=== PATIENT | female | born 1940 | race Hispanic/Latino ===

== ENCOUNTER 2017-06-19 08:22 | Emergency (ER) | payer MEDICARE, MEDICAID ==
[2017-06-19 08:23] VITALS: BMI 37.8
[2017-06-19 09:13] VITALS: BP 164/99; PULSE 67; RESP 16; TEMP 98.1; O2SAT 100
[2017-06-19] MEDS ORDERED: TDAP Vaccine 0.5 mL Syr IM ONE (09:32)
--- NOTE | 2017-06-19 09:35 | ED PDOC ---
Arrival/HPI - General Chief Complaint: Trauma Time Seen by Provider: 06/19/17 09:31 Historian: Patient, Family - History of Present Illness Narrative History of Present Illness (Text): 06/19/17 09:40 Jody Stevens is a 76 year old female, whose past medical history includes afib ( on coumadin) who presents to the emergency department with daughter for concerns s/p mechanical fall since one day ago. Patient reports she was at [employer] when she tripped and landed on her face. Daughter wanted to bring her in for evaluation. Patient currently has no complaints. Time/Duration: 24 hours Symptom Onset: Sudden Symptom Course: Unchanged Context: Tripped Past Medical History - Provider Review Nursing Documentation Reviewed: Yes - Infectious Disease Hx of Infectious Diseases: None - Tetanus Immunization Tetanus Immunization: Unknown - Cardiac Hx Atrial Fibrillation: Yes Hx Hypertension: Yes - Pulmonary Hx Respiratory Disorders: No Hx Asthma: No Hx Bronchitis: No Hx Chronic Obstructive Pulmonary Disease (COPD): No - Neurological Hx Neurological Disorder: No - HEENT Hx Cataracts: Yes (left eye sx) Hx Deafness: Yes ([place]) - Renal Hx Renal Disorder: No - Endocrine/Metabolic Hx Endocrine Disorders: No - Hematological/Oncological Hx Anemia: Yes (blood transfusion 2012 2013) - Integumentary Hx Dermatological Disorder: No - Musculoskeletal/Rheumatological Hx Falls: No - Gastrointestinal Hx Gastrointestinal Disorders: No (gi bleed) - Genitourinary/Gynecological Hx Genitourinary Disorders: No Hx Hematuria: Yes - Psychiatric Hx Depression: No Hx Emotional Abuse: No Hx Physical Abuse: No Hx Substance Use: No - Past Surgical History Past Surgical History: No Previous - Surgical History Other/Comment: drain to buttock - Anesthesia Hx Anesthesia: No - Suicidal Assessment Feels Threatened In Home Enviroment: No Family/Social History - Physician Review Nursing Documentation Reviewed: Yes Family/Social History: Unknown Family HX Smoking Status: Former Smoker Hx Alcohol Use: No Hx Substance Use: No Hx Substance Use Treatment: No Allergies/Home Meds Allergies/Adverse Reactions: Allergies No Known Allergies Allergy (Verified 06/19/17 09:16) Home Medications: Home Meds Medication Instructions Recorded Confirmed Warfarin [Coumadin] 2 mg PO DAILY 10/04/12 06/19/17 Metoprolol Succinate [Toprol XL] 25 mg PO BID 06/19/17 06/19/17 Review of Systems - Review of Systems Constitutional: absent: Fevers Eyes: absent: Vision Changes ENT: absent: Voice Changes, Sore Throat, Rhinorrhea Respiratory: absent: SOB Cardiovascular: absent: Chest Pain Gastrointestinal: absent: Abdominal Pain Musculoskeletal: Other (evaluation after fall ) Skin: Other (bruising). absent: Laceration Neurological: absent: Headache, Dizziness, Focal Weakness Hemo/Lymphatic: absent: Easy Bleeding Physical Exam Vital Signs Reviewed: Yes Vital Signs Temp Pulse Resp BP Pulse Ox 06/19/17 09:10 98.1 F 67 16 164/99 H 100 Temperature: Afebrile Blood Pressure: Hypertensive Pulse: Regular Respiratory Rate: Normal Appearance: Positive for: Well-Appearing, Non-Toxic, Comfortable Pain Distress: None Mental Status: Positive for: Alert and Oriented X 3 - Systems Exam Head: Present: Atraumatic, Normocephalic Pupils: Present: PERRL Extroacular Muscles: Present: EOMI Conjunctiva: Present: Normal, Other (periorbital swelling, swelling to nares) Mouth: Present: Moist Mucous Membranes, Normal Lips, Normal Tounge, Normal Teeth , Other (normal bite) Nose (External): No: Atraumatic Neck: Present: Normal Range of Motion. No: MIDLINE TENDERNESS Respiratory/Chest: Present: Clear to Auscultation, Good Air Exchange. No: Respiratory Distress, Accessory Muscle Use, Wheezes, Rales, Rhonchi Cardiovascular: Present: Regular Rate and Rhythm, Normal S1, S2. No: Murmurs Abdomen: Present: Normal Bowel Sounds. No: Tenderness, Distention, Peritoneal Signs, Rebound, Guarding Upper Extremity: Present: Normal Inspection, Normal ROM, NORMAL PULSES. No: Cyanosis, Edema, Tenderness Lower Extremity: Present: Normal Inspection, Normal ROM. No: Edema, Cyanosis, Tenderness, Swelling Neurological: Present: GCS=15, CN II-XII Intact, Speech Normal, Normal Sensory Function, Gait Normal, Memory Normal Skin: Present: Warm, Dry, Normal Color. No: Rashes Psychiatric: Present: Alert, Oriented x 3, Normal Insight, Normal Concentration Medical Decision Making ED Course and Treatment: 06/19/17 Impression: 76 year old male with periorbital swelling on bilateral eyes s/p mechanical fall yesterday (>12 hours ago). Neurologically intact Plan: -- CT head -- CT maxillofacial -- Labs -- Boostrix vaccine -- Reassess and disposition Progress Notes: 06/19/17 11:27 INR therapeutic at 1.9. CT shows displaced nasal bone fractures. Will give ENT follow-up 06/19/17 11:[address]: Creator : Chun Page MD COMPARISON: 11/09/2015 FINDINGS: HEMORRHAGE: No intracranial hemorrhage. BRAIN: There is a 6 mm calcification in the right occipital lobe. Mild microvascular changes are seen. There is mild atrophy. There are no acute findings VENTRICLES: Unremarkable. No hydrocephalus. CALVARIUM: Displaced nasal bone fractures are seen PARANASAL SINUSES: Unremarkable as visualized. No significant inflammatory changes. MASTOID AIR CELLS: Unremarkable as visualized. No inflammatory changes. OTHER FINDINGS: None. IMPRESSION: No acute intracranial findings. Displaced nasal bone fractures 06/19/17 11:[address]: Creator : Chun Page MD FINDINGS: NASAL BONES: There is a displaced fracture of the nasal bones bilaterally ORBITS: Unremarkable. PARANASAL SINUSES/ MASTOIDS: Clear. MAXILLA: Unremarkable. MANDIBLE/ TEMPOROMANDIBULAR JOINTS: Unremarkable. SKULL BASE: Unremarkable. TEMPORAL BONES: Middle ears and mastoid grossly unremarkable. OTHER FINDINGS: None. IMPRESSION: There is a displaced fracture of the nasal bones bilaterally. No other fractures seen - Lab Interpretations Lab Results: 06/19/17 09:43 Lab Results 06/19/17 09:43: Sodium 140, Potassium 5.0, Chloride 103, Carbon Dioxide 28, Anion Gap 13, BUN 18, Creatinine 1.0, Est GFR ( Amer) > 60, Est GFR (Non- Af Amer) 54, Random Glucose 100, Calcium 9.3, Total Bilirubin 0.9, AST 32, ALT 26, Alkaline Phosphatase 79, Total Protein 8.5 H, Albumin 4.0, Globulin 4.5, Albumin/Globulin Ratio 0.9 L 06/19/17 09:43: PT 21.3 H, INR 1.91 H, APTT 31.1 I have reviewed the lab results: Yes - RAD Interpretation Radiology Orders: 06/19/17 09:31 HEAD W/O CONTRAST [CT] Stat MAXILLOFACIAL W/O CONTRAST [CT] Stat Cash Applications Specialist: Radiologist - Medication Orders Current Medication Orders: Discontinued Medications Tetanus/Reduced Diphtheria/Acell Pertussis (Boostrix Vaccine Inj) 0.5 ml IM .ONCE ONE Stop: 06/19/17 09:33 Last Admin: 06/19/17 09:46 Dose: 0.5 ml Immunization Registry Document 06/19/17 09:46 SE (Rec: 06/19/17 09:46 SE [id number]) Immunization Registry Consent Date 06/19/17 - Scribe Statement The provider has reviewed the documentation as recorded by the Scribe Meme Brewer Provider Scribe Attestation: All medical record entries made by the Scribe were at my direction and personally dictated by me. I have reviewed the chart and agree that the record accurately reflects my personal performance of the history, physical exam, medical decision making, and the department course for this patient. I have also personally directed, reviewed, and agree with the discharge instructions and disposition. Disposition/Present on Arrival - Present on Arrival Any Indicators Present on Arrival: No History of DVT/PE: No History of Uncontrolled Diabetes: No Urinary Catheter: No History of Decub. Ulcer: No History Surgical Site Infection Following: None - Disposition Have Diagnosis and Disposition been Completed?: Yes Diagnosis: Fall, Nasal bone fracture Disposition: HOME/ ROUTINE Disposition Time: 11:28 Patient Plan: Discharge Condition: GOOD Discharge Instructions (ExitCare): Nasal Fracture (ED) Additional Instructions: Follow-up with PMD within 2 days. Return to Emergency department if condition worsens. Follow-up with ENT for nasal bone fractures Referrals: Patricia Verduzco DO [Primary Care Provider] - Follow up with primary Cristopher Mondragon DO [Staff Provider] - Follow up with primary Forms: [employer] ([place]hi)
[2017-06-19 10:01] LABS: ALKALINE PHOSPHATASE 79 U/L (38-126); ALT/SGPT 26 U/L (7-56); AST/SGOT 32 U/L (14-36); BILIRUBIN,TOTAL 0.9 mg/dL (0.2-1.3); BLOOD UREA NITROGEN 18 mg/dL (7-21); CALCIUM 9.3 mg/dL (8.4-10.5); CARBON DIOXIDE 28 mmol/L (21-33); CHLORIDE 103 mmol/L (98-107); GFR AFRICAN-AMERICAN > 60; GLUCOSE,RANDOM 100 mg/dL (70-110); SODIUM 140 mmol/L (132-148); TOTAL PROTEIN 8.5 g/dL (5.8-8.3)
[2017-06-19 10:03] LABS: ALB/GLOB RATIO 0.9 (1.1-1.8)
[2017-06-19 10:04] LABS: INR 1.91 (0.93-1.08); PARTIAL THROMBOPLASTIN TIME 31.1 Seconds (25.1-36.5)
--- NOTE | 2017-06-19 10:46 | CT ---
PROCEDURE: CT HEAD WITHOUT CONTRAST. HISTORY: fall with head trauma COMPARISON: 11/09/2015 TECHNIQUE: Axial computed tomography images were obtained through the head/brain without intravenous contrast. Radiation dose: Total exam DLP = 629 mGy-cm. This CT exam was performed using one or more of the following dose reduction techniques: Automated exposure control, adjustment of the mA and/or kV according to patient size, and/or use of iterative reconstruction technique. FINDINGS: HEMORRHAGE: No intracranial hemorrhage. BRAIN: There is a 6 mm calcification in the right occipital lobe. Mild microvascular changes are seen. There is mild atrophy. There are no acute findings VENTRICLES: Unremarkable. No hydrocephalus. CALVARIUM: Displaced nasal bone fractures are seen PARANASAL SINUSES: Unremarkable as visualized. No significant inflammatory changes. MASTOID AIR CELLS: Unremarkable as visualized. No inflammatory changes. OTHER FINDINGS: None. IMPRESSION: No acute intracranial findings Displaced nasal bone fractures
--- NOTE | 2017-06-19 11:29 | CT ---
PROCEDURE: CT MAXILLOFACIAL BONES WITHOUT CONTRAST HISTORY: fall, head trauma COMPARISON: None TECHNIQUE: Contiguous axial CT images of the maxillofacial bones were obtained. Coronal and sagittal reformats were generated. Radiation dose: Total exam DLP = 754 mGy-cm. This CT exam was performed using one or more of the following dose reduction techniques: Automated exposure control, adjustment of the mA and/or kV according to patient size, and/or use of iterative reconstruction technique. FINDINGS: NASAL BONES: There is a displaced fracture of the nasal bones bilaterally ORBITS: Unremarkable. PARANASAL SINUSES/ MASTOIDS: Clear. MAXILLA: Unremarkable. MANDIBLE/ TEMPOROMANDIBULAR JOINTS: Unremarkable. SKULL BASE: Unremarkable. TEMPORAL BONES: Middle ears and mastoid grossly unremarkable. OTHER FINDINGS: None. IMPRESSION: There is a displaced fracture of the nasal bones bilaterally. No other fractures seen
== END 2017-06-19 11:43 | disposition home or self-care (01) ==
LOC: ED 08:22
DX: S02.2XXA Fracture of nasal bones, initial encounter for closed fracture (principal); W01.0XXA Fall on same level from slipping, tripping and stumbling without subsequent striking against object, initial encounter; Y92.512 Supermarket, store or market as the place of occurrence of the external cause; I10 Essential (primary) hypertension; I48.91 Unspecified atrial fibrillation; Z79.01 Long term (current) use of anticoagulants; Z87.891 Personal history of nicotine dependence; Z23 Encounter for immunization

== ENCOUNTER 2017-10-31 13:43 | Inpatient (IN) | payer MEDICARE, MEDICAID ==
--- NOTE | 2017-10-31 15:07 | ED PDOC ---
Arrival/HPI - General Chief Complaint: Abnormal Labs Time Seen by Provider: 10/31/17 14:55 Historian: Patient - History of Present Illness Narrative History of Present Illness (Text): Jody Stevens is a 76 year old female, whose past medical history includes afib ( on coumadin) who presents to the emergency department with daughter for concerns about high INR; last check was at the PMD office today and was noted to be 8.0. Daughter states that Pt was placed on 5.0 mg of coumadin over 10 days ago when the INR was 1.5. by PMD, Dr. Odonnell, who advised 6 days of a higher dose however, daughter has kept her mother on the higher dose an extra 4 -5 days ; wants to know if Vitamin K is required now. Daughter says Pt reportedly sits alone most of the day watching TV and has a red buttock; denies GIB, fever, dysuria, cp, sob, back pain, nausea, vomiting, diarrhea, or falls or injuries. Time/Duration: < week Symptom Onset: Sudden Symptom Course: Unchanged Quality: Unable to Describe Severity Level: 1 Activities at Onset: Rest Context: Home Past Medical History - Provider Review Nursing Documentation Reviewed: Yes - Travel History Have you recently traveled outside [place] w/in the past 3 mons?: No - Infectious Disease Hx of Infectious Diseases: None - Tetanus Immunization Tetanus Immunization: Unknown - Cardiac Hx Cardiac Disorders: Yes Hx Atrial Fibrillation: Yes Hx Hypertension: Yes - Pulmonary Hx Respiratory Disorders: No Hx Asthma: No Hx Bronchitis: No Hx Chronic Obstructive Pulmonary Disease (COPD): No - Neurological Hx Neurological Disorder: No - HEENT Hx HEENT Disorder: Yes Hx Cataracts: Yes Hx Deafness: Yes ([place]) - Renal Hx Renal Disorder: No - Endocrine/Metabolic Hx Endocrine Disorders: No - Hematological/Oncological Hx Blood Disorders: Yes Hx Anemia: Yes Hx Blood Transfusions: Yes - Integumentary Hx Dermatological Disorder: No - Musculoskeletal/Rheumatological Hx Falls: No - Gastrointestinal Hx Gastrointestinal Disorders: Yes (gi bleed) - Genitourinary/Gynecological Hx Genitourinary Disorders: Yes Hx Hematuria: Yes - Psychiatric Hx Psychophysiologic Disorder: No Hx Substance Use: No - Past Surgical History Past Surgical History: No Previous - Surgical History Other/Comment: drain to buttock - Anesthesia Hx Anesthesia: No - Suicidal Assessment Feels Threatened In Home Enviroment: No Family/Social History - Physician Review Nursing Documentation Reviewed: Yes Family/Social History: Unknown Family HX Smoking Status: Former Smoker Hx Alcohol Use: No Hx Substance Use: No Hx Substance Use Treatment: No Allergies/Home Meds Allergies/Adverse Reactions: Allergies No Known Allergies Allergy (Verified 10/31/17 14:04) Home Medications: Home Meds Medication Instructions Recorded Confirmed Warfarin [Coumadin] 5 mg PO DAILY 10/04/12 10/31/17 Metoprolol Succinate [Toprol XL] 25 mg PO BID 06/19/17 10/31/17 Ergocalciferol [Drisdol 50,000 1.25 mg PO Q7D 10/31/17 10/31/17 Intl Units Cap] Pantoprazole Sodium [Protonix] 40 mg PO DAILY 10/31/17 10/31/17 Rosuvastatin Calcium [Crestor] 10 mg PO DAILY 10/31/17 10/31/17 Review of Systems - Review of Systems Systems not reviewed;Unavailable: Uncooperative Constitutional: Normal Eyes: Normal ENT: Normal Respiratory: Normal Cardiovascular: Normal Gastrointestinal: Normal Genitourinary Female: Normal Musculoskeletal: Normal Skin: Normal, Other (buttock soreness) Neurological: Normal Endocrine: Normal Hemo/Lymphatic: Normal Psychiatric: Normal Physical Exam Vital Signs Reviewed: Yes Vital Signs Temp Pulse Resp BP Pulse Ox 10/31/17 20:06 98.9 F 61 22 160/94 H 100 10/31/17 19:20 63 161/77 H 10/31/17 14:07 99.1 F 83 17 156/82 H 98 Temperature: Afebrile Blood Pressure: Hypertensive Pulse: Regular Respiratory Rate: Normal Appearance: Positive for: Well-Appearing, Non-Toxic, Comfortable Pain Distress: None Mental Status: Positive for: Alert and Oriented X 3 - Systems Exam Head: Present: Atraumatic, Normocephalic Pupils: Present: PERRL Extroacular Muscles: Present: EOMI Conjunctiva: Present: Normal Mouth: Present: Moist Mucous Membranes Neck: Present: Normal Range of Motion Respiratory/Chest: Present: Clear to Auscultation, Good Air Exchange. No: Respiratory Distress, Accessory Muscle Use Cardiovascular: Present: Regular Rate and Rhythm, Normal S1, S2. No: Murmurs Abdomen: No: Tenderness, Distention, Peritoneal Signs Rectal: Present: Other (declined) Back: Present: Normal Inspection Upper Extremity: Present: Normal Inspection. No: Cyanosis, Edema Lower Extremity: Present: Normal Inspection. No: Edema Neurological: Present: GCS=15, CN II-XII Intact, Speech Normal Skin: Present: Warm, Dry, Normal Color, Erythematous (ischial redness bilateral ; no skin breakdown). No: Rashes Psychiatric: Present: Alert, Oriented x 3, Normal Insight, Normal Concentration Medical Decision Making ED Course and Treatment: 10/31/17 15:30 Impression Jody Stevens is a 76 year old female, whose past medical history includes afib ( on coumadin) who presents to the emergency department with daughter for concerns about high INR; last check was at PMD office today and was 8.0. Plan Labs, UA Coags assess and dispo 10/31/17 17:10 Progress Note rectal exam positive for blood EKG: Atrial fibrillation with slow ventricular response, nonspecific ST and T wave abnormality, Rate 57 bpm, Qt/QTc 448/436 ms T&S and FFP x 2 units ordered, Consent obtained Vitamin K 10 mg iv drip contact Yaneth who admits for Dax Discussed case with Dr. Wolfe Pt transferred to floor 11/01/17 01:05 - Lab Interpretations Lab Results: 10/31/17 15:15 10/31/17 15:15 Lab Results 10/31/17 15:15: Sodium 139, Potassium 4.3, Chloride 104, Carbon Dioxide 28, Anion Gap 12, BUN 16, Creatinine 0.9, Est GFR ( Amer) > 60, Est GFR (Non- Af Amer) > 60, Random Glucose 99, Calcium 9.2, Total Bilirubin 0.4, AST 33, ALT 24, Alkaline Phosphatase 81, Total Protein 8.5 H, Albumin 3.7, Globulin 4.8, Albumin/Globulin Ratio 0.8 L 10/31/17 15:15: PT 107.6 H, INR 9.02 H*, APTT 61.7 H 10/31/17 15:15: WBC 12.6 H D, RBC 3.82, Hgb 9.4 L, Hct 30.8 L, MCV 80.6, MCH 24.6 L, MCHC 30.5 L, RDW 19.3 H, Plt Count 354, MPV 10.8, Gran % 69.2 H, Lymph % (Auto) 20.5 L, [place] % (Auto) 8.9 H, Eos % (Auto) 1.0 L, Baso % (Auto) 0.4, Gran # 8.72 H, Lymph # (Auto) 2.6, [place] # (Auto) 1.1 H, Eos # (Auto) 0.1, Baso # (Auto) 0.05 - Medication Orders Current Medication Orders: Metoprolol Succinate (Toprol Xl) 25 mg PO BID ROSARIO Last Admin: 10/31/17 19:20 Dose: 25 mg MAR Pulse and Blood Pressure Document 10/31/17 19:20 LA (Rec: 10/31/17 19:33 LA [id number]) Pulse Pulse Rate (60-90) 63 Blood Pressure Blood Pressure (100/60-150/90) 161/77 Pantoprazole Sodium (Protonix Ec Tab) 40 mg PO DAILY ROSARIO Discontinued Medications Phytonadione 10 mg/ Sodium (Chloride) 51 mls @ 100 mls/hr IV ONCE ONE Stop: 10/31/17 17:39 Last Admin: 10/31/17 18:17 Dose: 100 mls/hr eMAR Start Stop Document 10/31/17 18:17 LA (Rec: 10/31/17 18:18 LA [id number]) Intravenous Solution Start Date 10/31/17 Start Time 18:18 End Date 10/31/17 End time 18:49 Total Infusion Time 31 Disposition/Present on Arrival - Present on Arrival Any Indicators Present on Arrival: Yes History of DVT/PE: No History of Uncontrolled Diabetes: No Urinary Catheter: No History of Decub. Ulcer: No History Surgical Site Infection Following: None - Disposition Have Diagnosis and Disposition been Completed?: Yes Diagnosis: Gastrointestinal bleeding, lower, Warfarin overdosage Disposition: HOSPITALIZED Disposition Time: 19:14 Patient Plan: Admission Patient Problems: Current Active Problems Problem Status Onset Gastrointestinal bleeding, lower Acute Warfarin overdosage Acute Condition: STABLE
[2017-10-31 16:10] LABS: BASO # 0.05 K/mm3 (0.0-2.0); BASO % 0.4 % (0.0-3.0); EOS # 0.1 (0.0-0.7); GRAN # 8.72 (1.4-6.5); GRAN % 69.2 % (50.0-68.0); HEMOGLOBIN 9.4 g/dL (12.0-16.0); LYMPH # 2.6 (1.2-3.4); LYMPH % 20.5 % (22.0-35.0); MEAN CELL VOLUME 80.6 fl (80.0-105.0); MEAN CORPUSCULAR HEMOGLOBIN 24.6 pg (25.0-35.0); MEAN CORPUSCULAR HGB CONC 30.5 g/dl (31.0-37.0); MEAN PLATELET VOLUME 10.8 fl (7.0-11.0); MONO # 1.1 (0.1-0.6); MONO % 8.9 % (1.0-6.0); RBC 3.82 10^6/uL (3.5-6.1); RED CELL DISTRIBUTION WIDTH 19.3 % (11.5-14.5); WHITE BLOOD COUNT 12.6 10^3/ul (4.5-11.0)
[2017-10-31 16:20] LABS: PROTHROMBIN TIME 107.6 SECONDS (9.4-12.5)
[2017-10-31 16:21] LABS: PARTIAL THROMBOPLASTIN TIME 61.7 Seconds (25.1-36.5)
[2017-10-31 16:22] LABS: INR 9.02 (0.93-1.08)
[2017-10-31 16:34] LABS: ALB/GLOB RATIO 0.8 (1.1-1.8); ALBUMIN 3.7 g/dL (3.0-4.8); ALT/SGPT 24 U/L (7-56); AST/SGOT 33 U/L (14-36); BLOOD UREA NITROGEN 16 mg/dL (7-21); CALCIUM 9.2 mg/dL (8.4-10.5); GFR AFRICAN-AMERICAN > 60; GFR NON-AFRICAN AMERICAN > 60
[2017-10-31] MEDS ORDERED: Phytonadione 10 MG in Sodium Chloride 0.9% 50 ML IV ONE (17:09)
[2017-10-31] MEDS: Metoprolol Succinate 25 mg XL Tab PO SCH (19:20)
[2017-10-31 19:38] LABS: PH,URINE 7.5 (4.7-8.0); URINE BILIRUBIN NEGATIVE (NEGATIVE); URINE BLOOD LARGE (NEGATIVE); URINE GLUCOSE (UA) NEGATIVE (NEGATIVE); URINE LEUKOCYTE ESTERASE MODERATE Leu/uL (NEGATIVE); URINE PROTEIN NEGATIVE mg/dL (<30 mg/dL); URINE UROBILINOGEN 0.2 E.U./dL (<1 E.U./dL)
[2017-10-31 19:41] LABS: URINE APPEARANCE SLIGHT-CLOUDY (CLEAR); URINE COLOR YELLOW (YELLOW)
--- NOTE | 2017-10-31 19:45 | HP ---
DATE OF EXAM: HISTORY OF PRESENT ILLNESS: The patient is 77-year-old was brought in because of rectal bleeding. According to family, the patient was seen by Dr. Verduzco. Recently her Coumadin level was found to be low. She was told to take 5 mg Coumadin every day, that she has been taking even beyond 5 days. So, when she went for followup, she was found to have INR of 8 and daughter states that her past medical history is significant for AFib. PAST MEDICAL HISTORY: Significant for atrial fibrillation, hypertension, hyperlipidemia, history of left shoulder surgery. ALLERGIES: SHE IS NOT ALLERGIC TO ANY MEDICATION. SOCIAL HISTORY: She lives with her daughter. Socially drinks. Denies smoking. MEDICATION AT HOME: She is on metoprolol 25 twice a day, Coumadin 5 mg daily, Protonix 40 daily, Crestor 10 mg daily and vitamin D. REVIEW OF SYSTEMS: Significant for just feeling weak and has slight rectal bleeding. PHYSICAL EXAMINATION: GENERAL: She is awake, alert, oriented, communicative. VITAL SIGNS: She has temperature 99.1, pulse 83, respirations 17, blood pressure 156/82. LUNGS: Bilateral good airflow. No rhonchi or crackle. HEART: S1 and S2 audible. ABDOMEN: Soft and nontender. No rebound. No guarding. NEUROLOGICAL: She is awake and alert. Able to communicate. LABORATORY EXAM: WBC is 12.6, hemoglobin 9.4, hematocrit 30.8, platelet of 354. PT 107.6, INR 9.02. Chemistry: Sodium 139, potassium 4.3, chloride 104, CO2 28, BUN 16, creatinine 0.9, blood sugar of 99. ASSESSMENT: 1. Supratherapeutic INR. 2. Chronic atrial fibrillation. 3. Hypertension. 4. Hyperlipidemia. PLAN: The patient is given vitamin K. She is given FFP. We will hold her Coumadin. Start her on Protonix. Resume her metoprolol. Follow up her CBC, CMP in a.m. Cj Wolfe MD
[2017-10-31 19:54] LABS: URINE EPITHELIAL CELLS 0 - 2 /hpf (0-5); URINE WBC 0 - 2 /hpf (0-6)
[2017-11-01 01:40] VITALS: BMI 39.7
[2017-11-01 06:37] VITALS: O2SAT 98
[2017-11-01 08:22] LABS: BASO # 0.05 K/mm3 (0.0-2.0); BASO % 0.6 % (0.0-3.0); EOS # 0.2 (0.0-0.7); EOS % 1.9 % (1.5-5.0); GRAN # 5.46 (1.4-6.5); GRAN % 63.4 % (50.0-68.0); HEMOGLOBIN 9.3 g/dL (12.0-16.0); LYMPH # 2.3 (1.2-3.4); LYMPH % 26.8 % (22.0-35.0); MEAN CELL VOLUME 80.2 fl (80.0-105.0); MEAN CORPUSCULAR HEMOGLOBIN 24.3 pg (25.0-35.0); MEAN CORPUSCULAR HGB CONC 30.3 g/dl (31.0-37.0); MEAN PLATELET VOLUME 10.5 fl (7.0-11.0); MONO # 0.6 (0.1-0.6); MONO % 7.3 % (1.0-6.0); RBC 3.83 10^6/uL (3.5-6.1); WHITE BLOOD COUNT 8.6 10^3/ul (4.5-11.0)
[2017-11-01 08:39] LABS: INR 1.57 (0.93-1.08); PROTHROMBIN TIME 18.2 SECONDS (9.4-12.5)
[2017-11-01 08:41] LABS: ALB/GLOB RATIO 0.8 (1.1-1.8); ALBUMIN 3.9 g/dL (3.0-4.8); ALT/SGPT 19 U/L (7-56); AST/SGOT 43 U/L (14-36); BLOOD UREA NITROGEN 12 mg/dL (7-21); CALCIUM 9.3 mg/dL (8.4-10.5); GFR AFRICAN-AMERICAN > 60; GFR NON-AFRICAN AMERICAN > 60
[2017-11-01] MEDS: Metoprolol Succinate 25 mg XL Tab PO SCH ×2 (09:59→17:31)
[2017-11-01] MEDS ORDERED: Pantoprazole 40 mg EC Tab PO SCH (10:00)
[2017-11-01] MEDS ORDERED: cefTRIAXone 1 gm 1 GM/100 ML BAG IVPB SCH (10:15)
--- NOTE | 2017-11-01 11:22 | CARD ---
APPROVED REPORT EKG Measurement Heart [id number] <Conclusion> Atrial fibrillation with slow ventricular response Nonspecific ST and T wave abnormality Abnormal ECG
[2017-11-01 14:55] VITALS: RESP 20; TEMP 98.3
--- NOTE | 2017-11-01 17:26 | DS ---
HISTORY OF PRESENT ILLNESS: Patient is 77 years old, seen and examined, who was admitted last night because of supratherapeutic Coumadin. Patient was given FFP and dose of vitamin K. She seems to be doing well. On examination today she is awake, alert, oriented, communicative, not in any distress. No active bleeding. No gum bleeding. No hematuria. No rectal bleeding. No hemoptysis. PHYSICAL EXAMINATION: VITAL SIGNS: She is afebrile. Pulse 69, respirations 18, blood pressure 168/84. LUNGS: Bilateral good airflow. No rhonchi or crackle. HEART: S1 and S2 audible. ABDOMEN: Soft, nontender. No rebound. No guarding. NEUROLOGICAL: Patient is awake and alert, able to communicate. LABORATORY DATA: WBC is 8.6, hemoglobin 9.3, hematocrit 30.7, platelets 322. PT 18.2, INR 1.57. Chemistry: Sodium 141, potassium 4, chloride 101, CO2 29, BUN 12, creatinine 0.8, blood sugar of 92. Urine shows moderate leukocyte and large blood. ASSESSMENT: 1. Supratherapeutic Coumadin level. 2. History of atrial fibrillation. 3. Hypertension. 4. Hyperlipidemia. 5. Urinary tract infection or pyuria. PLAN: We will give her Coumadin 5 mg with 2.5 every other day. Continue Protonix. Continue metoprolol. Patient can be discharged. Can resume all the medications as prior to admission. She will follow up Monday for PT/INR with her primary care. Cj Wolfe MD
[2017-11-01 17:34] VITALS: BP 169/87
[2017-11-01 17:39] VITALS: PULSE 69
== END 2017-11-01 19:17 | disposition home or self-care (01) | DRG 918 ==
LOC: ED 13:43 → ERH 17:32 → 3RSO 22:02
PROVIDERS: ADMIT Internal Medicine; ATTEND Internal Medicine
DX: T45.511A Poisoning by anticoagulants, accidental (unintentional), initial encounter (principal); K62.5 Hemorrhage of anus and rectum; N39.0 Urinary tract infection, site not specified; R79.1 Abnormal coagulation profile; I48.2 Chronic atrial fibrillation; I10 Essential (primary) hypertension; E78.5 Hyperlipidemia, unspecified; H91.90 Unspecified hearing loss, unspecified ear; Z79.01 Long term (current) use of anticoagulants

== ENCOUNTER 2018-05-26 16:06 | Emergency (ER) | payer MEDICARE, MEDICAID ==
[2018-05-26 16:07] VITALS: BMI 39.7
[2018-05-26 16:30] VITALS: PULSE 80; RESP 18; O2SAT 99
[2018-05-26 17:53] LABS: BASO # 0.07 K/mm3 (0.0-2.0); BASO % 0.5 % (0.0-3.0); EOS # 0.2 (0.0-0.7); EOS % 1.1 % (1.5-5.0); GRAN # 10.52 (1.4-6.5); GRAN % 71.7 % (50.0-68.0); HEMOGLOBIN 9.9 g/dL (12.0-16.0); LYMPH # 2.9 (1.2-3.4); LYMPH % 19.6 % (22.0-35.0); MEAN CELL VOLUME 76.1 fl (80.0-105.0); MEAN CORPUSCULAR HGB CONC 28.9 g/dl (31.0-37.0); MEAN PLATELET VOLUME 10.4 fl (7.0-11.0); MONO % 7.1 % (1.0-6.0); RBC 4.51 10^6/uL (3.5-6.1); RED CELL DISTRIBUTION WIDTH 19.5 % (11.5-14.5); WHITE BLOOD COUNT 14.7 10^3/uL (4.5-11.0)
[2018-05-26] MEDS ORDERED: TDAP Vaccine 0.5 mL Syr IM ONE (18:20)
--- NOTE | 2018-05-26 18:21 | ED PDOC ---
Arrival/HPI - General Chief Complaint: Trauma Time Seen by Provider: 05/26/18 16:24 Historian: Patient - History of Present Illness Narrative History of Present Illness (Text): 05/26/18 18:17 77-year-old female presents today with fall and skin avulsion to the right upper eyelid. Patient family states that she tripped going up the stairs and fell and hit the front of her head on a planter. No loss of consciousness. Patient denies blurred vision. Patient's family states the incident occurred around noon today and the patient wanted to stay at the green party that she was at. Patient presents now for evaluation. pt also c/o bilateral knee pain. no other complaints. Past Medical History - Infectious Disease Hx of Infectious Diseases: None - Tetanus Immunization Tetanus Immunization: Unknown - Cardiac Hx Cardiac Disorders: Yes Hx Hypertension: Yes - Pulmonary Hx Chronic Obstructive Pulmonary Disease (COPD): No - Neurological Hx Neurological Disorder: No - HEENT Hx HEENT Disorder: Yes Hx Cataracts: Yes Hx Deafness: Yes ([place]) - Renal Hx Renal Disorder: No - Endocrine/Metabolic Hx Endocrine Disorders: No - Hematological/Oncological Hx Blood Disorders: Yes Hx Anemia: Yes Hx Blood Transfusions: Yes - Integumentary Hx Dermatological Disorder: No - Musculoskeletal/Rheumatological Hx Falls: No - Gastrointestinal Hx Gastrointestinal Disorders: Yes (gi bleed) - Genitourinary/Gynecological Hx Genitourinary Disorders: Yes Hx Hematuria: Yes - Psychiatric Hx Psychophysiologic Disorder: No Hx Substance Use: No - Past Surgical History Past Surgical History: No Previous - Surgical History Other/Comment: drain to buttock - Anesthesia Hx Anesthesia: No - Suicidal Assessment Feels Threatened In Home Enviroment: No Family/Social History - Physician Review Nursing Documentation Reviewed: Yes Family/Social History: Unknown Family HX Smoking Status: Former Smoker Hx Alcohol Use: No Hx Substance Use: No Hx Substance Use Treatment: No Allergies/Home Meds Allergies/Adverse Reactions: Allergies No Known Allergies Allergy (Verified 05/26/18 16:30) Home Medications: Home Meds Medication Instructions Recorded Confirmed Metoprolol Succinate XL [Toprol XL] 25 mg PO BID 06/19/17 11/01/17 Ergocalciferol [Drisdol 50,000 1.25 mg PO Q7D 10/31/17 10/31/17 Intl Units Cap] Pantoprazole Sodium [Protonix] 40 mg PO DAILY 10/31/17 11/01/17 Rosuvastatin Calcium [Crestor] 10 mg PO DAILY 10/31/17 10/31/17 Warfarin [Coumadin] 2.5 mg PO SUN 11/01/17 11/01/17 Warfarin [Coumadin] 2.5 mg PO TTS 11/01/17 11/01/17 Warfarin [Coumadin] 5 mg PO MWF 11/01/17 11/01/17 Review of Systems - Review of Systems Constitutional: absent: Fatigue, Fevers Eyes: Eye Pain, Other (eye swelling/ecchymosis). absent: Vision Changes, Photophobia ENT: Sinus Congestion. absent: Sore Throat Respiratory: absent: SOB, Cough Cardiovascular: absent: Chest Pain, Palpitations Gastrointestinal: absent: Abdominal Pain, Constipation, Diarrhea, Nausea, Vomiting Musculoskeletal: Arthralgias (b/l knee pain). absent: Back Pain, Neck Pain Skin: Other (abrasion to right upper eyelid) Neurological: absent: Headache, Dizziness Psychiatric: absent: Anxiety, Depression Physical Exam Vital Signs Reviewed: Yes Vital Signs Temp Pulse Resp BP Pulse Ox 05/26/18 16:28 97.5 F L 80 18 177/80 H 99 Temperature: Afebrile Blood Pressure: Normal Pulse: Regular Respiratory Rate: Normal Appearance: Positive for: Well-Appearing, Non-Toxic, Comfortable Pain Distress: None Mental Status: Positive for: Alert and Oriented X 3 - Systems Exam Head: Present: Tenderness, Contusion, Ecchymosis (+ edema and ecchymosis noted to nasal bridge, forehead, and inferior aspect of right orbit without step offs or crepitus. ), Abrasion (there is a 2cm x1cm superficial skin avulsion noted to the right upper eyelid. no active bleeding. + minimal edema noted to upper eyelid. ). No: Atraumatic Pupils: Present: PERRL Extroacular Muscles: Present: EOMI. No: Entrapment Conjunctiva: Present: Normal, Injected Ears: Present: Normal, NORMAL TM Mouth: Present: Moist Mucous Membranes Pharnyx: Present: Normal Nose (External): Present: Contusion Nose (Internal): Present: Other (+ septal perforation (chronic)). No: Septal Hematoma Neck: Present: Normal Range of Motion. No: MIDLINE TENDERNESS Respiratory/Chest: Present: Clear to Auscultation, Good Air Exchange. No: Res piratory Distress, Accessory Muscle Use Cardiovascular: Present: Regular Rate and Rhythm, Normal S1, S2. No: Murmurs Abdomen: No: Tenderness, Rebound, Guarding Back: Present: Normal Inspection Upper Extremity: Present: Normal Inspection, Normal ROM, NORMAL PULSES, Neurovascularly Intact. No: Tenderness, Swelling, Erythema Lower Extremity: Present: Normal ROM, Tenderness (+ minimal ttp over bilateral knees. + ecchymosis noted anterior aspect of right knee; full rom; normal gait. ) Neurological: Present: GCS=15, Speech Normal, Motor Func Grossly Intact, Normal Sensory Function Skin: Present: Warm, Dry, Normal Color Psychiatric: Present: Alert, Oriented x 3 Medical Decision Making ED Course and Treatment: 05/26/18 18:48 77yr old female with mechanical fall with right eyelid abrasion and head injury at noon today. On coumadin. cbc; wbc:14.7 cmp; wnl INR: 1.90 CT facial bones; FINDINGS: BONES: No acute fracture or aggressive appearing osseous lesion. The mandible is intact. SOFT TISSUES: Perinasal and forehead swelling/hematoma is noted. SINUSES: The sinuses are clear. ORBITS: The orbits are normal. No retrobulbar hematoma or mass. IMPRESSION: Unremarkable maxillofacial CT. Perinasal and forehead swelling/hematoma is noted. 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 VENTRICLES: There is generalized parenchymal atrophy noted as demonstrated by symmetrical dilatation of ventricles and sulci. ORBITS: The orbits are unremarkable. SINUSES AND MASTOIDS: The paranasal sinuses and mastoid air cells are clear. BONES: No fracture. SOFT TISSUES: Unremarkable. MISCELLANEOUS: Perinasal and forehead swelling/hematoma is noted. No acute intracranial pathology. IMPRESSION: 1. There is generalized parenchymal atrophy noted as demonstrated by symmetrical dilatation of ventricles and sulci. 2. Chronic periventricular and subcortical microvascular disease is seen. 3. Perinasal and forehead swelling/hematoma is noted. 4. No acute intracranial pathology. xray of bilateral knees; no fracture, + arthritis pt seen and evaluated by dr. Reynoso; pt with superficial skin avulsion to right eyelid; wound cleaned and irrigated; bacitracin applied; pt reassessment; pt non toxic well appearing; no distress. i discussed all results with patient and family. advised f/u with PMD and eye doctor within the next 2 days. advised immediate return if symptoms worsen, persist or if new symptoms develop. Patient verbalizes understanding of discharge instructions and need for immediate followup. all aspects of this case were discussed the attending of record. impression: fall, head injury, facial contusion, eyelid abrasion keep wound clean and dry. apply bacitracin twice daily follow up with the eye doctor within the next 2 days follow up with the primary care physician within the next 2 days follow up with the orthopedist within the next 2 days return immediately if symptoms worsen,persist or if new symptoms develop. - Lab Interpretations Lab Results: 05/26/18 17:40 Lab Results 05/26/18 17:40: WBC 14.7 H, RBC 4.51, Hgb 9.9 L, Hct 34.3 L, MCV 76.1 L D, MCH 22.0 L, MCHC 28.9 L, RDW 19.5 H, Plt Count 356, MPV 10.4, Gran % 71.7 H, Lymph % (Auto) 19.6 L, Pender % (Auto) 7.1 H, Eos % (Auto) 1.1 L, Baso % (Auto) 0.5, Gran # 10.52 H, Lymph # (Auto) 2.9, Pender # (Auto) 1.0 H, Eos # (Auto) 0.2, Baso # (Auto) 0.07 - RAD Interpretation Radiology Orders: 05/26/18 17:00 HEAD W/O CONTRAST [CT] Stat MAXILLOFACIAL W/O CONTRAST [CT] Stat 05/26/18 18:02 KNEES BILATERAL [RAD] Stat Disposition/Present on Arrival - Present on Arrival Any Indicators Present on Arrival: No History of DVT/PE: No History of Uncontrolled Diabetes: No Urinary Catheter: No History of Decub. Ulcer: No History Surgical Site Infection Following: None - Disposition Have Diagnosis and Disposition been Completed?: Yes Diagnosis: Head injury, Facial contusion, Orbital contusion, Abrasion of eyelid Disposition: HOME/ ROUTINE Disposition Time: 18:55 Patient Plan: Discharge Patient Problems: Current Active Problems Problem Status Onset Abrasion of eyelid Acute Facial contusion Acute Head injury Acute Orbital contusion Acute Condition: GOOD Discharge Instructions (ExitCare): Closed Head Injury (DC), Contusion (DC), Skin Abrasions (DC) Additional Instructions: keep wound clean and dry. apply bacitracin twice daily follow up with the eye doctor within the next 2 days follow up with the primary care physician within the next 2 days follow up with the orthopedist within the next 2 days Follow up with the ENT specialist within the next 2 days. return immediately if symptoms worsen,persist or if new symptoms develop. Referrals: Bobby Weir MD [Staff Provider] - Follow up with primary Patricia Verduzco DO [Primary Care Provider] - Follow up with primary Ronny Simeon DO [Staff Provider] - Follow up with primary Forms: [employer] (Romanian)
[2018-05-26 18:41] LABS: ALB/GLOB RATIO 0.9 (1.1-1.8); ALBUMIN 3.8 g/dL (3.0-4.8); INR 1.9; PROTHROMBIN TIME 21.9 SECONDS (9.4-12.5)
[2018-05-26 19:33] VITALS: BP 165/75; TEMP 97.8
--- NOTE | 2018-05-27 08:40 | CT ---
Date of service: 05/26/2018 PROCEDURE: CT HEAD WITHOUT CONTRAST. HISTORY: fall, head injury COMPARISON: None available. TECHNIQUE: Axial computed tomography images were obtained through the head/brain without intravenous contrast. Radiation dose: Total exam DLP = 967.62 mGy-cm. This CT exam was performed using one or more of the following dose reduction techniques: Automated exposure control, adjustment of the mA and/or kV according to patient size, and/or use of iterative reconstruction technique. FINDINGS: HEMORRHAGE: No intracranial hemorrhage. BRAIN: No mass effect or edema. Chronic microvascular changes are seen. There is mild to moderate atrophy. VENTRICLES: Unremarkable. No hydrocephalus. CALVARIUM: There is a scalp hematoma in the midline frontal region. PARANASAL SINUSES: Unremarkable as visualized. No significant inflammatory changes. MASTOID AIR CELLS: Unremarkable as visualized. No inflammatory changes. OTHER FINDINGS: The report concurs with the preliminary [facility] report IMPRESSION: No acute intracranial findings
--- NOTE | 2018-05-27 08:47 | CT ---
Date of service: 05/26/2018 PROCEDURE: CT MAXILLOFACIAL BONES WITHOUT CONTRAST HISTORY: fall, right eye/facial injury COMPARISON: None available. TECHNIQUE: Contiguous axial CT images of the maxillofacial bones were obtained. Coronal and sagittal reformats were generated. Radiation dose: Total exam DLP = 783.5 mGy-cm. This CT exam was performed using one or more of the following dose reduction techniques: Automated exposure control, adjustment of the mA and/or kV according to patient size, and/or use of iterative reconstruction technique. FINDINGS: NASAL BONES: There a midline frontal scalp hematoma. Minimally displaced nasal bone fractures are seen. These could be chronic. The remaining facial bones are intact ORBITS: Abnormal shape of the globes bilaterally. Dense material within the left eye and a dense band surrounding the globe. PARANASAL SINUSES/ MASTOIDS: Clear. MAXILLA: Unremarkable. MANDIBLE/ TEMPOROMANDIBULAR JOINTS: Unremarkable. SKULL BASE: Unremarkable. TEMPORAL BONES: Middle ears and mastoid grossly unremarkable. OTHER FINDINGS: The report concurs with the preliminary [facility] report IMPRESSION: There a midline frontal scalp hematoma. Minimally displaced nasal bone fractures are seen. These could be chronic. The remaining facial bones are intact
--- NOTE | 2018-05-27 09:24 | RAD ---
Date of service: 05/26/2018 PROCEDURE: Bilateral knees HISTORY: b/l knee pain s/p fall right > left COMPARISON: TECHNIQUE: Two views of each knee FINDINGS: There is mild joint space narrowing in the medial compartment of the left knee. Mild degenerative changes in the patellofemoral joints bilaterally No fracture. No joint effusion. IMPRESSION: No acute findings
== END 2018-05-26 19:36 | disposition home or self-care (01) ==
LOC: ED 16:06
DX: S00.211A Abrasion of right eyelid and periocular area, initial encounter (principal); S05.11XA Contusion of eyeball and orbital tissues, right eye, initial encounter; S09.90XA Unspecified injury of head, initial encounter; W10.9XXA Fall (on) (from) unspecified stairs and steps, initial encounter; I10 Essential (primary) hypertension; Z87.891 Personal history of nicotine dependence; Z23 Encounter for immunization

== ENCOUNTER 2018-06-26 14:18 | Emergency (ER) | payer MEDICARE, MEDICAID ==
[2018-06-26 14:46] VITALS: BMI 36.1
[2018-06-26 16:27] VITALS: RESP 18
--- NOTE | 2018-06-26 16:32 | ED PDOC ---
Arrival/HPI - General Chief Complaint: GI Problem Time Seen by Provider: 06/26/18 15:38 Historian: Patient, Family (2 daughters) - History of Present Illness Narrative History of Present Illness (Text): 06/26/18 16:31 77 y o female with past medical hx of a-fib, HTN, presents to Emergency department brought in by 2 daughters complaining of constipation x several weeks. Pt speaks only Czech, much of history and translation provided by 2 daughters at bedside. States that pt has not had BM in over a week, states pt has Colace at home for prescription but only took medication 1 time last week without relief. Reports tolerating PO diet well, no associated nausea or vomiting. States that patient receives weekly INR checks for hx a-fib and currently on Warfarin therapy. States that last INR was 1.5 on 06/23/18 [place], and was instructed by PMD to take 2 mg Warfarin on Monday and Monday, and 1 mg daily Mon-Mon until the next INR check this week. Pt's daughters also report that pt had witnessed mechanical fall at home on 06/23/18 as well, and sustained bruise to L rib, along with abrasion to R arm which is not currently bleeding. Pt's daughters did not bring pt to Emergency department on that day of the fall because she was not in pain and was acting like herself. Pt's daughter made appt for pt to be seen this coming Monday06/30/18 for check-up and INR level; did not bring pt to see PMD in office sooner. Pt denies headache, dizziness, chest pain, sob, nausea, vomiting, urinary complaints, or other symptoms. Past medical hx: A-fib (on Coumadin), hypertension PSurgHx: shattered L shoulder s/p metal sj placement in upper L arm Allergies: NKDA Meds: Metoprolol, Warfarin, Vit D Fam hx: denies Soc hx: denies smoking, EtOH, or illicit drug use PMD: Dr. eVrduzco Past Medical History - Provider Review Nursing Documentation Reviewed: Yes - Infectious Disease Hx of Infectious Diseases: None - Tetanus Immunization Tetanus Immunization: Unknown - Reproductive Menopause: Yes - Cardiac Hx Cardiac Disorders: Yes Hx Hypertension: Yes - Pulmonary Hx Chronic Obstructive Pulmonary Disease (COPD): No - Neurological Hx Neurological Disorder: No - HEENT Hx HEENT Disorder: Yes Hx Cataracts: Yes Hx Deafness: Yes ([place]) - Renal Hx Renal Disorder: No - Endocrine/Metabolic Hx Endocrine Disorders: No - Hematological/Oncological Hx Blood Disorders: Yes Hx Anemia: Yes Hx Blood Transfusions: Yes - Integumentary Hx Dermatological Disorder: No - Musculoskeletal/Rheumatological Hx Falls: No - Gastrointestinal Hx Gastrointestinal Disorders: Yes (gi bleed) - Genitourinary/Gynecological Hx Genitourinary Disorders: Yes Hx Hematuria: Yes - Psychiatric Hx Psychophysiologic Disorder: No Hx Substance Use: No - Past Surgical History Past Surgical History: No Previous - Surgical History Other/Comment: drain to buttock - Anesthesia Hx Anesthesia: No - Suicidal Assessment Feels Threatened In Home Enviroment: No Family/Social History - Physician Review Nursing Documentation Reviewed: Yes Family/Social History: No Known Family HX Smoking Status: Former Smoker Hx Alcohol Use: No Hx Substance Use: No Hx Substance Use Treatment: No Allergies/Home Meds Allergies/Adverse Reactions: Allergies No Known Allergies Allergy (Verified 05/26/18 16:30) Home Medications: Home Meds Medication Instructions Recorded Confirmed Metoprolol Succinate XL [Toprol XL] 25 mg PO BID 06/19/17 06/26/18 Ergocalciferol [Drisdol 50,000 1.25 mg PO Q7D 10/31/17 06/26/18 Intl Units Cap] Pantoprazole Sodium [Protonix] 40 mg PO DAILY 10/31/17 06/26/18 Rosuvastatin Calcium [Crestor] 10 mg PO DAILY 10/31/17 06/26/18 Warfarin [Coumadin] 2.5 mg PO SUN 11/01/17 06/26/18 Warfarin [Coumadin] 2.5 mg PO TTS 11/01/17 06/26/18 Warfarin [Coumadin] 5 mg PO MWF 11/01/17 06/26/18 Review of Systems - Review of Systems Constitutional: absent: Fatigue, Weight Change, Fevers, Night Sweats Eyes: absent: Vision Changes Respiratory: absent: SOB, Cough, Sputum, Wheezing Cardiovascular: absent: Chest Pain, Palpitations, Edema Gastrointestinal: Constipation. absent: Abdominal Pain, Diarrhea, Nausea, Vomiting, Appetite Changes, Hematochezia, Hematemesis, Anorexia, Food Intolerance Musculoskeletal: absent: Arthralgias, Back Pain, Neck Pain Skin: absent: Rash Neurological: absent: Headache, Dizziness Endocrine: absent: Diaphoresis Physical Exam Vital Signs Temp Pulse Resp BP Pulse Ox 06/26/18 16:25 65 18 153/81 H 98 06/26/18 14:18 98.7 F 77 20 177/75 H 98 Temperature: Afebrile Blood Pressure: Hypertensive Pulse: Regular Respiratory Rate: Normal Appearance: Positive for: Well-Appearing, Non-Toxic, Comfortable Pain Distress: None Mental Status: Positive for: Alert and Oriented X 3 - Systems Exam Head: Present: Atraumatic, Normocephalic Pupils: Present: PERRL Extroacular Muscles: Present: EOMI Conjunctiva: Present: Normal Mouth: Present: Moist Mucous Membranes Neck: Present: Normal Range of Motion. No: Paraspinal Tenderness, JVD, Lymphadenopathy Respiratory/Chest: Present: Clear to Auscultation, Good Air Exchange. No: Respiratory Distress, Accessory Muscle Use, Wheezes, Rales, Rhonchi Cardiovascular: Present: Normal S1, S2, Other (Irregularly irregular rhythm). No: Murmurs, Rub, Gallop Back: Present: Other (Contusion noted in area of L posterior rib at T11-T12, no tenderness to palpation at site). No: Paraspinal Tenderness Upper Extremity: Present: Normal Inspection, Normal ROM, NORMAL PULSES, Neurovascularly Intact, Capillary Refill < 2s. No: Cyanosis, Edema, Temperature Abnormalties Lower Extremity: Present: Normal Inspection, NORMAL PULSES, Normal ROM, Neurovascularly Intact, Capillary Refill < 2 s. No: Edema, CALF TENDERNESS, Cyanosis Neurological: Present: GCS=15, CN II-XII Intact, Speech Normal, Motor Func Grossly Intact, Normal Sensory Function, Norm Deep Tendon Reflexes, Gait Normal Skin: Present: Warm, Dry, Normal Color. No: Rashes Psychiatric: Present: Alert, Oriented x 3, Normal Insight, Normal Concentration Medical Decision Making ED Course and Treatment: 06/26/18 17:07 77 y o female Past medical hx A-fib, hypertension, presents to the Emergency department complaining of constipation x several weeks and also s/p fall 4 days ago. Plan: -Labs -XR Chest, LS spine, AXR -Continue to monitor 06/26/18 18:23 Lab results reviewed with pt and pt's daughters at bedside. INR 2.4. X-rays pending, continue to monitor. 06/26/18 19:49 Discussed results of XRs with patient. XRs not read by radiologist application designer. XRs read with Emergency department attending Dr. Wheat. Comparison to prior Chest X-ray in October 2014 demonstrated no changes from baseline, cardiomegaly. Abd XR demonstrates stool in colon. LS XR shows no acute fractures to account for clinical presentation. Instructed pt's daughters that pt can take Colace bid at home for constipation. Can follow with PMD for further titration of medication for constipation. All questions and concerns addressed and all are agreeable to plan. - RAD Interpretation Radiology Orders: 06/26/18 16:29 CHEST PORTABLE [RAD] Stat ABDOMEN (FLAT PLATE) 1VIEW [RAD] Stat 06/26/18 16:30 RIBS BILATERAL [RAD] Stat - PA / MECHANICAL COMMISSIONING ENGINEER / Resident Statement / has reviewed & agrees with the documentation as recorded. / has examined the patient and agrees with the treatment plan. Disposition/Present on Arrival - Present on Arrival Any Indicators Present on Arrival: No History of DVT/PE: No History of Uncontrolled Diabetes: No Urinary Catheter: No History of Decub. Ulcer: No History Surgical Site Infection Following: None - Disposition Have Diagnosis and Disposition been Completed?: Yes Diagnosis: Constipation, Status post fall Disposition: HOME/ ROUTINE Disposition Time: 19:55 Patient Plan: Discharge Patient Problems: Current Active Problems Problem Status Onset Constipation Acute Status post fall Acute Condition: IMPROVED Discharge Instructions (ExitCare): Preventing Falls in the Older Adult, Constipation, Adult (DC) Print Language: CHADIAN Additional Instructions: Please follow-up with your primary care physician (Dr. Verduzco) within 2-3 days of hospital discharge. Can take Colace twice daily, one in the morning and 1 at night for constipation symptoms. Should your symptoms recur or worsen, please call your primary care physician or report to your nearest emergency department. Referrals: Patricia Verduzco DO [Primary Care Provider] - Follow up with primary Forms: [employer] (Belarusian)
[2018-06-26 16:58] LABS: BASO # 0.05 K/mm3 (0.0-2.0); BASO % 0.6 % (0.0-3.0); EOS # 0.1 (0.0-0.7); EOS % 1.3 % (1.5-5.0); GRAN # 6.27 (1.4-6.5); GRAN % 69.1 % (50.0-68.0); HEMOGLOBIN 8.9 g/dL (12.0-16.0); LYMPH # 1.8 (1.2-3.4); LYMPH % 19.3 % (22.0-35.0); MEAN CORPUSCULAR HEMOGLOBIN 22.3 pg (25.0-35.0); MEAN CORPUSCULAR HGB CONC 28.9 g/dl (31.0-37.0); MEAN PLATELET VOLUME 10.9 fl (7.0-11.0); MONO # 0.9 (0.1-0.6); MONO % 9.7 % (1.0-6.0); RED CELL DISTRIBUTION WIDTH 20.9 % (11.5-14.5); WHITE BLOOD COUNT 9.1 10^3/uL (4.5-11.0)
[2018-06-26 17:06] LABS: INR 2.4; PARTIAL THROMBOPLASTIN TIME 25.5 Seconds (25.1-36.5); PROTHROMBIN TIME 27.8 SECONDS (9.4-12.5)
[2018-06-26 17:07] LABS: ALB/GLOB RATIO 0.8 (1.1-1.8); ALBUMIN 3.7 g/dL (3.0-4.8); CALCIUM 8.8 mg/dL (8.4-10.5)
[2018-06-26 18:30] VITALS: TEMP 98.2
[2018-06-26 20:14] VITALS: BP 135/64; PULSE 65; O2SAT 98
--- NOTE | 2018-06-27 08:56 | RAD ---
Date of service: 06/26/2018 HISTORY: S/p fall COMPARISON: 11/19/2014 FINDINGS: LUNGS: No active pulmonary disease. PLEURA: No significant pleural effusion identified, no pneumothorax apparent. CARDIOVASCULAR: No aortic atherosclerotic calcification present. Moderate cardiomegaly no pulmonary vascular congestion. OSSEOUS STRUCTURES: No significant abnormalities. VISUALIZED UPPER ABDOMEN: Normal. OTHER FINDINGS: None. IMPRESSION: No active disease.
--- NOTE | 2018-06-27 11:13 | RAD ---
Date of service: 06/26/2018 HISTORY: Constipation COMPARISON: None available. FINDINGS: BOWEL: Normal. No obstruction. No free air. BONES: Normal. OTHER FINDINGS: None. IMPRESSION: No active disease.
--- NOTE | 2018-06-27 11:15 | RAD ---
Date of service: 06/26/2018 PROCEDURE: Radiographs of the Lumbar Spine. HISTORY: S/p fall COMPARISON: No prior. FINDINGS: BONES: Normal alignment. No listhesis. No fracture. DISC SPACES: Multilevel disc degeneration with osteophyte formation. Facet arthropathy. OTHER FINDINGS: None. IMPRESSION: No evidence of acute compression fracture
== END 2018-06-26 19:55 | disposition home or self-care (01) ==
LOC: ED 14:18
DX: K59.00 Constipation, unspecified (principal); I10 Essential (primary) hypertension; I48.91 Unspecified atrial fibrillation; Z87.891 Personal history of nicotine dependence; Z79.01 Long term (current) use of anticoagulants

== ENCOUNTER 2018-08-24 09:28 | Inpatient (IN) | payer MEDICARE, MEDICAID ==
--- NOTE | 2018-08-24 09:51 | ED PDOC ---
Arrival/HPI - General Chief Complaint: Altered Mental Status Time Seen by Provider: 08/24/18 09:40 Historian: Patient, Family - History of Present Illness Narrative History of Present Illness (Text): 08/24/18 09:54 A 78 year old female, whose past medical history includes A- Fib (on Coumadin) and hypertension, presents to the emergency department with a complaint of 1 hour onset slurred speech, left sided numbness, and confusion. Upon arrival to the emergency department, symptoms resolved. Patient's family note that the patient was misidentifying significant others. They reports that she woke up at 5 am today and was at her baseline. Patient ambulated into the emergency department. She is in no acute distress. She denies fevers, chills, headache, dizziness, chest pain, shortness of breath, dyspnea on exertion, cough, abdominal pain, nausea, vomiting, diarrhea, back pain, neck pain, urinary/bowel changes, or any other complaint. PMD: Dr. Odonnell Time/Duration: 1 hour Symptom Onset: Sudden Symptom Course: Resolved Activities at Onset: Rest, Light Context: Home Past Medical History - Provider Review Nursing Documentation Reviewed: Yes - Infectious Disease Hx of Infectious Diseases: None - Tetanus Immunization Tetanus Immunization: Unknown - Cardiac Hx Cardiac Disorders: Yes Hx Hypertension: Yes - Pulmonary Hx Chronic Obstructive Pulmonary Disease (COPD): No - Neurological Hx Neurological Disorder: No - HEENT Hx HEENT Disorder: Yes Hx Cataracts: Yes Hx Deafness: Yes ([place]) - Renal Hx Renal Disorder: No - Endocrine/Metabolic Hx Endocrine Disorders: No - Hematological/Oncological Hx Blood Disorders: Yes Hx Anemia: Yes Hx Blood Transfusions: Yes - Integumentary Hx Dermatological Disorder: No - Musculoskeletal/Rheumatological Hx Falls: No - Gastrointestinal Hx Gastrointestinal Disorders: Yes (gi bleed) - Genitourinary/Gynecological Hx Genitourinary Disorders: Yes Hx Hematuria: Yes - Psychiatric Hx Psychophysiologic Disorder: No Hx Substance Use: No - Past Surgical History Past Surgical History: No Previous - Surgical History Other/Comment: drain to buttock - Anesthesia Hx Anesthesia: No - Suicidal Assessment Feels Threatened In Home Enviroment: No Family/Social History - Physician Review Nursing Documentation Reviewed: Yes Family/Social History: No Known Family HX Smoking Status: Former Smoker Hx Alcohol Use: No Hx Substance Use: No Hx Substance Use Treatment: No Allergies/Home Meds Allergies/Adverse Reactions: Allergies No Known Allergies Allergy (Verified 08/24/18 12:05) Home Medications: Home Meds Medication Instructions Recorded Confirmed RX: Metoprolol Succinate XL 25 mg PO BID 06/19/17 08/24/18 [Toprol XL] RX: Ergocalciferol [Drisdol 50,000 1.25 mg PO Q7D 10/31/17 08/24/18 Intl Units Cap] RX: Pantoprazole Sodium [Protonix] 40 mg PO DAILY 10/31/17 08/24/18 RX: Rosuvastatin Calcium [Crestor] 10 mg PO DAILY 10/31/17 08/24/18 Docusate [Colace] 100 mg PO DAILY 08/24/18 08/24/18 Linaclotide [Linzess] 72 mcg PO DAILY 08/24/18 08/24/18 RX: Warfarin [Coumadin] 1 mg PO DAILY 08/24/18 08/24/18 RX: Warfarin [Coumadin] 2 mg PO DAILY 08/24/18 08/24/18 Review of Systems - Physician Review All systems were reviewed & negative as marked: Yes - Review of Systems Constitutional: absent: Fevers Respiratory: absent: SOB, Cough Cardiovascular: absent: Chest Pain, NOVA Gastrointestinal: absent: Abdominal Pain, Stool Changes, Diarrhea, Nausea, Vomiting Genitourinary Female: absent: Urine Output Changes Musculoskeletal: absent: Back Pain, Neck Pain Neurological: Speech Changes (Slurred speech), Other (left sided numbness). absent: Headache, Dizziness Psychiatric: Other (Confused) Physical Exam Vital Signs Reviewed: Yes Vital Signs Temp Pulse Resp BP Pulse Ox 08/24/18 09:29 98.6 F 97 H 18 128/81 98 Temperature: Afebrile Blood Pressure: Normal Pulse: Tachycardic Respiratory Rate: Normal Appearance: Positive for: Well-Appearing, Non-Toxic, Comfortable Pain Distress: None Mental Status: Positive for: Alert and Oriented X 3 Medical Decision Making ED Course and Treatment: Impression: A 78 year old female is brought into the emergency department with family for complaint of sudden onset of confusion, left- sided numbness, and slurred speech. Plan: -- Head CT -- EKG -- Chest X-ray -- Labs -- Urinalysis -- IV Fluids -- Reassess and disposition Prior Visits: Notes and results from previous visits were reviewed. Progress Notes: 08/24/18 09:50: Code stroke called. 08/24/18 10:10: Case discussed with Dr. Bellamy. States that the patient is not a tPA candidate given that symptoms have resolved in the emergency department. 08/24/18 10:26 EKG: Ordered, reviewed, and independently interpreted the EKG. Rate : 81 BPM Rhythm : A- Fib PROCEDURE: CT HEAD WITHOUT CONTRAST. Dictator : Nolan Brooks MD Report Date : 08/24/2018 10:24:15 IMPRESSION: No acute parenchymal, subarachnoid or extra-axial hemorrhage. BRAIN: Moderate to fairly significant diffuse confluent chronic white matter ischemic changes are again seen extending peripherally into the deep and subcortical white matter both cerebral hemispheres.. Additionally, there are scattered more discrete deep and subcortical white matter, basal nuclei and brainstem chronic lacunar type infarcts. There may also be few chronic left cerebellar lacunar type infarcts as well. Note that the possibility of a small hyperacute infarct cannot be excluded. Moderate to significant generalized volume loss Re demonstrated is an apparent buckle procedure of the left lobe with internal hyperdense appearance possibly related chronic hemorrhage, calcification or prosthesis... 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 Maria at approximately 10:18 p.m. with written down and read back verification. Chest X-ray Dictator : Nolan Brooks MD Report Date : 08/24/2018 11:40:34 IMPRESSION: Mild pulmonary venous congestive changes bilateral lower lobe alveolar-type infiltrates and bilateral effusions 08/24/18 11:03: Case discussed with Dr. Wolfe who accepts patient to her service. 08/24/18 21:[address] gan bedside. accepted notified of ct findings ua treated. no cardipulm complaints. - Lab Interpretations I have reviewed the lab results: Yes - EKG Interpretation Interpreted by ED Physician: Yes Type: 12 lead EKG NIHSS Scale ([place]) Time Performed: 09:57 - How Severe is the Stoke Baseline Level of Consciousness: 0=Alert LOC to Questions: 0=Both comments correct LOC to commands: 0=Obeys both correctly Best Gaze: 0=Normal Visual: 0=No visual loss Facial: 0=Normal Motor Arm - Left: 0=No drift Motor Arm - Right: 0=No drift Motor Leg - Left: 0=No drift Motor Leg - Right: 0=No drift Limb Ataxia: 0=Absent Sensory: 0=Normal Best Language: 0=No aphasia Dysarthia: 0=Normal articulation Extinction & Inattention (Neglect): 0=Normal, no object Score: 0 Risk Level: No Stroke Risk rTPA Inclusion/Exclusion - Refusal of Treatment Patient Refused Treatment: No - Inclusion Criteria for Altepase Patient is 18 years or Older: Yes The Clinical Diagnosis of Ischemic Stroke That is Causing a Potentially Disabling Neurological Deficit: No Time of Onset is Well Established to be Less Than 270 Minute Before Treatment Would Begin: Yes Risk/Benefit Discussed With Patient/Family Member Present: No - Scribe Statement The provider has reviewed the documentation as recorded by the Scribe Dari Zapata Provider Scribe Attestation: All medical record entries made by the Scribe were at my direction and personally dictated by me. I have reviewed the chart and agree that the record accurately reflects my personal performance of the history, physical exam, medical decision making, and the department course for this patient. I have also personally directed, reviewed, and agree with the discharge instructions and disposition. Disposition/Present on Arrival - Present on Arrival Any Indicators Present on Arrival: No History of DVT/PE: No History of Uncontrolled Diabetes: No Urinary Catheter: No History of Decub. Ulcer: No History Surgical Site Infection Following: None - Disposition Have Diagnosis and Disposition been Completed?: Yes Diagnosis: TIA (transient ischemic attack), UTI (urinary tract infection) Disposition: HOSPITALIZED Disposition Time: 10:00 Patient Problems: Current Active Problems Problem Status Onset TIA (transient ischemic attack) Acute UTI (urinary tract infection) Acute Condition: FAIR
[2018-08-24] MEDS ORDERED: Sodium Chloride 0.9% 1,000 ML IV SCH (10:00)
[2018-08-24 10:07] LABS: BASO # 0.05 K/mm3 (0.0-2.0); BASO % 0.4 % (0.0-3.0); EOS # 0.3 (0.0-0.7); EOS % 2.3 % (1.5-5.0); HEMOGLOBIN 8.2 g/dL (12.0-16.0); LYMPH # 2.2 (1.2-3.4); MEAN CELL VOLUME 75.9 fl (80.0-105.0); MEAN CORPUSCULAR HEMOGLOBIN 21.8 pg (25.0-35.0); MEAN CORPUSCULAR HGB CONC 28.7 g/dl (31.0-37.0); MEAN PLATELET VOLUME 10.4 fl (7.0-11.0); MONO # 0.8 (0.1-0.6); MONO % 6.1 % (1.0-6.0); RBC 3.77 10^6/uL (3.5-6.1); RED CELL DISTRIBUTION WIDTH 20.4 % (11.5-14.5); WHITE BLOOD COUNT 13.4 10^3/uL (4.5-11.0)
[2018-08-24 10:16] LABS: ALB/GLOB RATIO 0.8 (1.1-1.8); ALBUMIN 3.9 g/dL (3.0-4.8); BLOOD UREA NITROGEN 17 mg/dL (7-21); CALCIUM 8.9 mg/dL (8.4-10.5); GFR NON-AFRICAN AMERICAN 48; HDL CHOLESTEROL 44 mg/dL (29-60)
[2018-08-24 10:17] LABS: ALT/SGPT < 6 U/L (7-56); AST/SGOT 30 U/L (14-36); INR 1.47; PARTIAL THROMBOPLASTIN TIME 30.4 Seconds (26.9-38.3); PROTHROMBIN TIME 16.6 SECONDS (9.4-12.5)
[2018-08-24 10:27] LABS: LDL CHOLESTEROL 49 mg/dL (0-129)
--- NOTE | 2018-08-24 10:27 | CT ---
Date of service: 08/24/2018 PROCEDURE: CT HEAD WITHOUT CONTRAST. HISTORY: Code Stroke COMPARISON: Comparison made with prior CT scan 05/26/2018. TECHNIQUE: Axial computed tomography images were obtained through the head/brain without intravenous contrast. Radiation dose: Total exam DLP = 927.41 mGy-cm. This CT exam was performed using one or more of the following dose reduction techniques: Automated exposure control, adjustment of the mA and/or kV according to patient size, and/or use of iterative reconstruction technique. FINDINGS: HEMORRHAGE: No acute parenchymal, subarachnoid or extra-axial hemorrhage. BRAIN: Moderate to fairly significant diffuse confluent chronic white matter ischemic changes are again seen extending peripherally into the deep and subcortical white matter both cerebral hemispheres.. Additionally, there are scattered more discrete deep and subcortical white matter, basal nuclei and brainstem chronic lacunar type infarcts. There may also be few chronic left cerebellar lacunar type infarcts as well. Note that the possibility of a small hyperacute infarct cannot be excluded. Moderate to significant generalized volume loss. VENTRICLES: No obstructive hydrocephalus. CALVARIUM: No acute calvarial fractures. PARANASAL SINUSES: Unremarkable as visualized. No significant inflammatory changes. MASTOID AIR CELLS: Unremarkable as visualized. No inflammatory changes. OTHER FINDINGS: Re demonstrated is an apparent buckle procedure of the left lobe with internal hyperdense appearance possibly related chronic hemorrhage, calcification or prosthesis. Clinical correlation with ophthalmologic history recommended. 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 Clinical correlation with ophthalmologic history recommended IMPRESSION: No acute parenchymal, subarachnoid or extra-axial hemorrhage. BRAIN: Moderate to fairly significant diffuse confluent chronic white matter ischemic changes are again seen extending peripherally into the deep and subcortical white matter both cerebral hemispheres.. Additionally, there are scattered more discrete deep and subcortical white matter, basal nuclei and brainstem chronic lacunar type infarcts. There may also be few chronic left cerebellar lacunar type infarcts as well. Note that the possibility of a small hyperacute infarct cannot be excluded. Moderate to significant generalized volume loss Re demonstrated is an apparent buckle procedure of the left lobe with internal hyperdense appearance possibly related chronic hemorrhage, calcification or prosthesis... 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 Maria at approximately 10:18 p.m. with written down and read back verification.
[2018-08-24 10:30] LABS: TROPONIN I 0.01 ng/mL
[2018-08-24 10:31] LABS: URINE BILIRUBIN NEGATIVE (NEGATIVE); URINE BLOOD NEGATIVE (NEGATIVE); URINE GLUCOSE (UA) NEGATIVE (NEGATIVE); URINE LEUKOCYTE ESTERASE SMALL Leu/uL (NEGATIVE); URINE PROTEIN 100 mg/dL (<30 mg/dL); URINE UROBILINOGEN 0.2 E.U./dL (<1 E.U./dL)
[2018-08-24 10:45] LABS: URINE APPEARANCE CLEAR (CLEAR); URINE COLOR YELLOW (YELLOW)
[2018-08-24 10:47] LABS: URINE AMORPHOUS SEDIMENT FEW /hpf; URINE BACTERIA MANY /hpf
[2018-08-24] MEDS ORDERED: levoFLOXacin 750 mg in D5W 150 ML BAG IVPB STA (10:49)
--- NOTE | 2018-08-24 11:44 | RAD ---
Date of service: 08/24/2018 HISTORY: Code Stroke COMPARISON: Chest dated 06/26/2018 FINDINGS: LUNGS: Mild pulmonary venous congestive changes bilateral lower lobe alveolar-type infiltrates and bilateral effusions PLEURA: As above. No pneumothorax apparent. CARDIOVASCULAR: Cardiomegaly. Mild calcified atherosclerotic plaque changes seen transverse portion of the abdominal aorta. OSSEOUS STRUCTURES: No significant change.. Re demonstrated is mild dextroscoliosis of likely compensatory for a levoscoliosis of the lumbar spine VISUALIZED UPPER ABDOMEN: Normal. OTHER FINDINGS: None. IMPRESSION: Mild pulmonary venous congestive changes bilateral lower lobe alveolar-type infiltrates and bilateral effusions
--- NOTE | 2018-08-24 14:53 | CP.PCM.CON ---
<Wilbur Nance - Last Filed: 08/24/18 14:50> History of Present Illness - History of Present Illness History of Present Illness: Neurology Consultation (Dr. Bellamy's Service) Consulting Physician: Dr. Maria CC: TIA Symptoms/Code Stroke HPI: Mrs. Stevens is a 78 year old female with a past medical history significant for atrial fibrillation (on Coumadin), HTN, chronic constipation, Vitamin D deficiency and GERD who presents with left sided upper/lower extremity weakness, dysarthria, and inability to correctly identify family member. Patients first language is [place] and patients daughters at bedside for translation. According to patients daughter, she began to notice the patient leaning to her left side with her left knee "buckling" and that she was slurring her speech. Daljit avila became even more concerned when the patient called her by the wrong name, something that patient reportedly has never done before, and decided that the patient needed further evaluation at the [facility] ED. During transportation in the ambulance to the ER, patients symptoms resolved without intervention. Upon arrival to the ED, a code stroke was initiated and, given that her symptoms resolved in route to the ED, was not a candidate for tPa. Patient reports that she recalls becoming weak this morning and having difficulty with the motor function of her mouth when speaking. She denies any visual/auditory aura's, headache, changes in her vision, LOC, seizure activity or loss of bowel/bladder function during this episode. During this assessment, patient also demonstrated correct identification of her loved ones at bedside. Of note, patients family members all noted that patient struggles to maintain her INR in therapeutic range as she is unable to comply with diet restrictions while on Coumadin. She currently denies any symptoms and further 12 point ROS unremarkable. PMH: As stated above PSH: Multiple cataract surgeries bilaterally Family History: Denies Social History: Former light smoker (Quit >15 years ago); Denies any alcohol or illicit drug use Allergies: NKDA Home Medications: As per MAR Review of Systems - Review of Systems Review of Systems: As stated in HPI, otherwise negative Past Patient History - Infectious Disease Hx of Infectious Diseases: None - Tetanus Immunizations Tetanus Immunization: Unknown - Past Medical History & Family History Past Medical History?: Yes - Past Social History Smoking Status: Former Smoker - CARDIAC Hx Cardiac Disorders: Yes Hx Hypertension: Yes - PULMONARY Hx Chronic Obstructive Pulmonary Disease (COPD): No - NEUROLOGICAL Hx Neurological Disorder: No - HEENT Hx HEENT Problems: Yes Hx Cataracts: Yes Hx Deafness: Yes ([place]) - RENAL Hx Chronic Kidney Disease: No - ENDOCRINE/METABOLIC Hx Endocrine Disorders: No - HEMATOLOGICAL/ONCOLOGICAL Hx Blood Disorders: Yes Hx Anemia: Yes Hx Blood Transfusions: Yes - INTEGUMENTARY Hx Dermatological Problems: No - MUSCULOSKELETAL/RHEUMATOLOGICAL Hx Falls: No - GASTROINTESTINAL Hx Gastrointestinal Disorders: Yes (gi bleed) - GENITOURINARY/GYNECOLOGICAL Hx Genitourinary Disorders: Yes Hx Hematuria: Yes - PSYCHIATRIC Hx Psychophysiologic Disorder: No Hx Substance Use: No - SURGICAL HISTORY Other/Comment: drain to buttock - ANESTHESIA Hx Anesthesia: No Meds Allergies/Adverse Reactions: Allergies Allergy/AdvReac Type Severity Reaction Status Date / Time No Known Allergies Allergy Verified 08/24/18 12:05 - Medications Medications: Current Medications Atorvastatin Calcium (Lipitor) 40 mg PO DIN ROSARIO Docusate Sodium (Colace) 100 mg PO DAILY ROSARIO Furosemide (Lasix) 40 mg IVP DAILY [facility], [facility]–1983 Sodium Chloride (Sodium Chloride 0.9%) 1,000 mls @ 100 mls/hr IV .Q10H FOR[facility], [facility] Last Admin: 08/24/18 10:32 Dose: 100 mls/hr Metoprolol Succinate (Toprol Xl) 25 mg PO BID [facility], [facility]1983 Non-Formulary Medication (Rosuvastatin Calcium [Crestor]) 10 mg PO DAILY ROSARIO Pantoprazole Sodium (Protonix Ec Tab) 40 mg PO DAILY ROSARIO Warfarin Sodium (Coumadin) 10 mg PO DAILY@1800 ROSARIO; Protocol Physical Exam - Constitutional Appears: Non-toxic, No Acute Distress - Head Exam Head Exam: ATRAUMATIC, NORMOCEPHALIC - Eye Exam Eye Exam: EOMI, Normal appearance, PERRL. absent: Conjunctival injection, Nystagmus, Periorbital swelling, Periorbital tenderness, Scleral icterus Pupil Exam: NORMAL ACCOMODATION, PERRL. absent: Fixed, Irregular, Miosis, Mydriatic, Unequal - ENT Exam ENT Exam: Mucous Membranes Moist - Neck Exam Neck exam: Positive for: Full Rom - Respiratory Exam Respiratory Exam: Clear to Auscultation Bilateral, NORMAL BREATHING PATTERN - Cardiovascular Exam Cardiovascular Exam: Irregular Rhythm, +S1, +S2. absent: Bradycardia, Tachycardia, JVD - GI/Abdominal Exam GI & Abdominal Exam: Normal Bowel Sounds, Soft. absent: Tenderness - Extremities Exam Extremities exam: Positive for: normal capillary refill, pedal edema (+1 pitting edema extending to mid calves bilaterally), pedal pulses present. Negative for: calf tenderness, joint swelling, tenderness - Neurological Exam Neurological exam: Alert, CN II-XII Intact, Normal Gait, Oriented x3, Reflexes Normal Additional comments: NIHSS Score: 0 - Expanded Neurological Exam Expanded Neurological exam: Inattentive Patient oriented to: person, place, time Cranial nerves: EOM's Intact: Normal, Facial Palsey w/Forehead Movement: Normal, Facial Palsey w/o Forehead Movement: Normal, Facial Sensation: Normal, Nystagm us: Normal, Tongue Deviation: Normal Ataxia: No Cerebellar Function: Finger to Nose: Normal Sensory exam: Lower Extremity Light Touch: Normal, Upper Extremity Light Touch: Normal Neuro motor strength exam: Left Upper Extremity: 4 (Somewhat limited d/t pain), Right Upper Extremity: 5, Left Lower Extremity: 5, Right Lower Extremity: 5 Coma Scale Eye Opening: SPONTANEOUS Coma Scale Motor Response: OBEYS COMMANDS Coma Scale Verbal: Oriented Coma Scale Total: 15 - Psychiatric Exam Psychiatric exam: Normal Affect, Normal Mood - Skin Skin Exam: Dry, Intact, Warm Results - Vital Signs Recent Vital Signs: Last Vital Signs Temp 98.6 F 08/24/18 09:29 Pulse 97 H 08/24/18 09:29 Resp 18 08/24/18 09:29 BP 128/81 08/24/18 09:29 Pulse Ox 98 08/24/18 09:29 - Labs Result Diagrams: 08/24/18 09:58 08/24/18 09:58 Labs: Laboratory Results - last 24 hr 08/24/18 08/24/18 08/24/18 09:58 09:58 09:58 WBC 13.4 H D RBC 3.77 Hgb 8.2 L Hct 28.6 L MCV 75.9 L MCH 21.8 L MCHC 28.7 L RDW 20.4 H Plt Count 376 MPV 10.4 Neut % (Auto) 75.2 H Lymph % (Auto) 16.0 L [place] % (Auto) 6.1 H Eos % (Auto) 2.3 Baso % (Auto) 0.4 Lymph # (Auto) 2.2 [place] # (Auto) 0.8 H Eos # (Auto) 0.3 Baso # (Auto) 0.05 Absolute Neuts (auto) 10.10 H PT 16.6 H INR 1.47 APTT 30.4 Sodium 139 Potassium 4.8 Chloride 107 Carbon Dioxide 26 Anion Gap 11 BUN 17 Creatinine 1.1 Est GFR ( Amer) 58 Est GFR (Non-Af Amer) 48 Random Glucose 114 H Calcium 8.9 Total Bilirubin 0.4 AST 30 ALT < 6 L Alkaline Phosphatase 75 Troponin I 0.01 D NT-Pro-B Natriuret Pep Total Protein 8.5 H Albumin 3.9 Globulin 4.6 Albumin/Globulin Ratio 0.8 L Triglycerides 100 Cholesterol 111 L LDL Cholesterol Direct 49 HDL Cholesterol 44 Urine Color Urine Appearance Urine pH Ur Specific [place] Urine Protein Urine Glucose (UA) Urine Ketones Urine Blood Urine Nitrate Urine Bilirubin Urine Urobilinogen Ur Leukocyte Esterase Urine RBC Urine WBC Ur Epithelial Cells Amorphous Sediment Urine Bacteria Urine Other Blood Type Antibody Screen BBK History Checked 08/24/18 08/24/18 08/24/18 09:58 10:00 10:15 WBC RBC Hgb Hct MCV MCH MCHC RDW Plt Count MPV Neut % (Auto) Lymph % (Auto) [place] % (Auto) Eos % (Auto) Baso % (Auto) Lymph # (Auto) [place] # (Auto) Eos # (Auto) Baso # (Auto) Absolute Neuts (auto) PT INR APTT Sodium Potassium Chloride Carbon Dioxide Anion Gap BUN Creatinine Est GFR ( Amer) Est GFR (Non-Af Amer) Random Glucose Calcium Total Bilirubin AST ALT Alkaline Phosphatase Troponin I NT-Pro-B Natriuret Pep 1280 H Total Protein Albumin Globulin Albumin/Globulin Ratio Triglycerides Cholesterol LDL Cholesterol Direct HDL Cholesterol Urine Color Yellow Urine Appearance Clear Urine pH 7.0 Ur Specific [place] 1.020 Urine Protein 100 H Urine Glucose (UA) Negative Urine Ketones Negative Urine Blood Negative Urine Nitrate Negative Urine Bilirubin Negative Urine Urobilinogen 0.2 Ur Leukocyte Esterase Small H Urine RBC 1 - 3 H Urine WBC 10 - 15 H Ur Epithelial Cells 3 - 4 Amorphous Sediment Few Urine Bacteria Many Urine Other [place] Blood Type A POSITIVE Antibody Screen Negative BBK History Checked Patient has bt Assessment & Plan - Assessment and Plan (Free Text) Assessment: 78 year old female with a past medical history significant for atrial fibrillation (on Coumadin), HTN, chronic constipation, Vitamin D deficiency and GERD who presents with left sided upper/lower extremity weakness, dysarthria, and inability to correctly identify family member. Plan: -CT Head (08/24) showed moderate diffuse confluent chronic white matter ischemic changes in the deep and subcortical white matter of both cerebral hemispheres, scattered deep and subcortical white matter, basal nuclei and brainstem chronic lacunar type infarcts, few chronic left cerebellar lacunar type infarcts, ophthalmologic findings consistent with patients medical history and no definite acute parenchymal, subarachnoid or extra-axial hemorrhage/infarctions appreciated -Carotid/Vertebral US and 2D Echocardiogram with bubble study pending -INR subtherapeutic at 1.47 -Discontinue Coumadin indefinitely -Start Eliquis 5mg PO BID -Continue Statin -Continue Normal Saline at 100mls/hr -PT/OT -Further recommendations as per Dr. Bellamy Patient seen and case discussed with attending, Dr. Bellamy. Wilbur Nance PGY2 - Date & Time Date: 08/24/18 Time: 14:58 <Andrés Bellamy - Last Filed: 08/27/18 01:38> Meds - Medications Medications: Current Medications Atorvastatin Calcium (Lipitor) 40 mg PO DIN [facility] Last Admin: 08/26/18 17:09 Dose: 40 mg Docusate Sodium (Colace) 100 mg PO DAILY [facility] Last Admin: 08/26/18 10:20 Dose: 100 mg Furosemide (Lasix) 40 mg IVP DAILY [facility] Last Admin: 08/26/18 10:21 Dose: 40 mg Ceftriaxone Sodium (Rocephin 1 Gram Ivpb) 1 gm in 100 mls @ 100 mls/hr IVPB DAILY [facility], [facility]; Protocol Last Admin: 08/26/18 10:22 Dose: 100 mls/hr Metoprolol Succinate (Toprol Xl) 25 mg PO BID [facility] Last Admin: 08/26/18 17:17 Dose: Not Given Pantoprazole Sodium (Protonix Ec Tab) 40 mg PO DAILY [facility] Last Admin: 08/26/18 10:20 Dose: 40 mg Results - Vital Signs Recent Vital Signs: Last Vital Signs Temp 97.7 F 08/26/18 23:59 Pulse 58 L 08/26/18 23:59 Resp 18 08/26/18 23:59 BP 131/62 08/26/18 23:59 Pulse Ox 97 08/26/18 23:59 - Labs Result Diagrams: 08/26/18 07:15 08/25/18 06:00 Labs: Laboratory Results - last 24 hr 08/24/18 08/26/18 08/26/18 10:00 07:15 07:22 WBC 11.1 H D RBC 3.65 Hgb 7.7 L Hct 27.5 L MCV 75.3 L MCH 21.1 L MCHC 28.0 L RDW 20.2 H Plt Count 321 MPV 10.3 Neut % (Auto) 69.8 H Lymph % (Auto) 16.4 L [place] % (Auto) 11.4 H Eos % (Auto) 1.9 Baso % (Auto) 0.5 Lymph # (Auto) 1.8 [place] # (Auto) 1.3 H Eos # (Auto) 0.2 Baso # (Auto) 0.05 Absolute Neuts (auto) 7.72 H POC Glucose (mg/dL) 98 Blood Type A POSITIVE Antibody Screen Negative Crossmatch See Detail BBK History Checked Patient has bt 08/26/18 08/26/18 08/26/18 11:57 16:16 21:04 WBC RBC Hgb Hct MCV MCH MCHC RDW Plt Count MPV Neut % (Auto) Lymph % (Auto) [place] % (Auto) Eos % (Auto) Baso % (Auto) Lymph # (Auto) [place] # (Auto) Eos # (Auto) Baso # (Auto) Absolute Neuts (auto) POC Glucose (mg/dL) 187 H 108 128 H Blood Type Antibody Screen Crossmatch BBK History Checked Attending/Attestation - Attestation I have personally seen and examined this patient.: Yes I have fully participated in the care of the patient.: Yes I have reviewed all pertinent clinical information: Yes Notes (Text): I agree with the assessment and plan. Will continue stroke or TIA work-up as above.
[2018-08-24] MEDS: Pantoprazole 40 mg EC Tab PO SCH (15:01)
--- NOTE | 2018-08-24 16:26 | CARD ---
APPROVED REPORT Date of service: 08/24/2018 EKG Measurement Heart [id number] <Conclusion> Undetermined rhythm Otherwise normal ECG
[2018-08-24] MEDS: Metoprolol Succinate 25 mg XL Tab PO SCH (18:20)
--- NOTE | 2018-08-24 18:38 | CON ---
DATE: 08/24/2018 NEUROLOGY CONSULTATION CHIEF COMPLAINT: TIA symptoms. HISTORY OF PRESENT ILLNESS: This is a 78-year-old woman with past medical history of AFib, on Eliquis, hypertension, chronic constipation, vitamin D deficiency, GERD, who presented with left side upper and lower extremity weakness, unable to correctly identify the family member. The patient's first language is Persian. The patient's daughter is at the bedside and was a director of operations. According to the patient's daughter, she towards to the left side, left knee buckle and a slurred speech. Therefore, she came to the hospital for further evaluation. During the patient's ER transport, her symptoms had resolved upon arrival. symptoms resolved in ED. The patient was not a TPA candidate. The patient recalls coming week and is having difficulty had mode of functions speaking. Symptoms change like mostly of TIA. Currently, . PAST MEDICAL HISTORY: As above. FAMILY HISTORY: Noncontributory. SOCIAL HISTORY: Former light smoker, quit 15 years ago. Denies any illicit drug use or alcohol abuse.. MEDICATIONS: Reviewed by nurse's reconciliation sheet. ALLERGIES: NO KNOWN DRUG ALLERGIES. REVIEW OF SYSTEMS: Fourteen-point review of systems is as per HPI. PHYSICAL EXAMINATION: VITAL SIGNS: Temperature 98.6, pulse rate of 64, blood pressure 150/77, respiratory rate of 18, oxygen saturation of 90% on room air. GENERAL: The patient is seen up in bed, in no acute distress. HEENT: Head is atraumatic, normocephalic. PERRLA. Extraocular muscles intact. NECK: Supple. No JVD. No adenopathy noted. LUNGS: Clear to auscultation. No adventitious sounds. HEART: S1 and S2. Normal rate and rhythm. No murmurs, rubs, or gallops. ABDOMEN: Soft, nontender, and nondistended. Bowel sounds present. EXTREMITIES: No clubbing and no cyanosis. Peripheral pulses are 2+ bilaterally. NEUROLOGICAL: The patient is alert and oriented to person, place, month and year. Speech is fluent without any errors. Cranial nerves II through XII are intact. Motor exam; moves all extremities equally. Toes are downgoing bilaterally. Sensory exam; light touch, pinprick, proprioception and vibration are intact. DTRs are 2+ throughout one in both in knees and ankles. Coordination; [id number]-[id number] is intact. No dysmetria noted. Gait is deferred for now. ASSESSMENT AND PLAN: 1. This is a 78-year-old woman with history of atrial fibrillation, on Eliquis, hypertension, chronic constipation, vitamin D deficiency, gastroesophageal reflux disease, who presented with transient left side upper and lower extremity weakness. She is unable to correctly identity the family member. CAT scan of the head show some moderate diffuse chronic white matter ischemic changes in the deep and subcortical white matter of both cerebral hemispheres consistent with chronic lacunar type infarcts and few chronic left cerebral lacunar infarcts. Mostly, findings were consistent with past medical history, no definite acute parenchymal subarachnoid hemorrhage. Currently, she was previously on Coumadin, but at this time her symptoms seems most likely of transient ischemic attack. We recommend her to continue with Eliquis instead of Coumadin 5 mg p.o. b.i.d. 2. Statin and Lipitor 40 mg p.o. daily for dyslipidemia and physical therapy and occupational therapy evaluation. We will get a carotid Doppler once again. She is clinically stable at this standpoint. Thank you for the consult. Rakesh Ledesma MD
[2018-08-24 18:44] VITALS: BMI 37.8
[2018-08-24] MEDS ORDERED: Pneumococcal 23-Valent Vaccine IM ONE (18:44)
[2018-08-24] MEDS ORDERED: Influenza Vaccine 60 mcg/0.5 mL SYR (4YR UP) IM ONE (18:44)
--- NOTE | 2018-08-24 20:59 | US ---
PROCEDURE: Bilateral carotid artery duplex ultrasound HISTORY: Carotid stenosis syncope PHYSICIAN(S): Saud Garcia MD. TECHNIQUE: Duplex sonography and color-flow Doppler were used to evaluate the carotid bifurcations and limited segments of the vertebral arteries bilaterally. FINDINGS: There is mild to moderate smooth heterogeneous plaque noted at the carotid bifurcations bilaterally. The peak systolic velocity in the proximal right internal carotid artery is 66 cm/sec. This corresponds to a 20 to 39% proximal right ICA stenosis. Normal systolic velocities are noted in the proximal right external carotid artery. There is antegrade flow in the right vertebral artery. The peak systolic velocity in the proximal left internal carotid artery is 97 cm/sec. This corresponds to a 20 to 39% proximal left ICA stenosis. Normal systolic velocities are noted in the proximal left external carotid artery. There is antegrade flow in the left vertebral artery. IMPRESSION: 1. Bilateral 20-39% proximal ICA stenoses. 2. Antegrade flow in both vertebral arteries.
--- NOTE | 2018-08-24 23:01 | HP ---
DATE OF EXAM: 08/24/2018 HISTORY OF PRESENT ILLNESS: Patient is 78-year-old brought in by her daughter with whom she lives with. Daughter noted that she had slurred speech. She was having difficulty finding words. By the time she came to the ER, her symptoms resolved. Denies any chest pain. No shortness of breath. No nausea, vomiting. No diarrhea. Patient's family noted that she has been having increasing leg swelling. Patient's daughter who was at the bedside states that she was taken to Dr. was found to be normal. Patient's family also noted that she had some confusion with some left-sided weakness. When I asked her how she is doing, she said she is okay and she . PAST MEDICAL HISTORY: Significant for: 1. Hypertension. 2. Chronic atrial fibrillation. 3. Hyperlipidemia. 4. History of left shoulder surgery in the past. ALLERGIES: SHE IS NOT ALLERGIC TO ANY MEDICATIONS. MEDICATIONS AT HOME: She is on Crestor 10 mg daily, Protonix 40 daily, metoprolol 25 twice a day, , and Coumadin 2 mg daily. SOCIAL HISTORY: She used to be smoker in the remote past. Denies any alcohol use. PHYSICAL EXAMINATION: GENERAL: She is awake, alert, able to communicate, somewhat confused. VITAL SIGNS: She is afebrile. Pulse 97, respirations 18, blood pressure 128/81. LUNGS: Bilateral fair airflow. No rhonchi or crackles. HEART: S1 and S2 audible. ABDOMEN: Soft, obese, nontender. No rebound. No guarding. NEUROLOGIC: Patient is awake and alert, able to communicate. Moves all extremities. LABORATORY DATA: WBC 13.4, hemoglobin 8.2, hematocrit 28.6, and platelets 376. PT 16.6. INR 1.46. Sodium 139, potassium 4.8, chloride 107, CO2 of 26, BUN 17, creatinine 1.1. Blood sugar 114. BNP 1280. Urine shows 10 to 15 wbc's. DIAGNOSTIC DATA: CT scan of the head shows moderate to fairly significant diffuse and confluent chronic white matter ischemic changes. Chronic lacunar infarct. Cerebellar lacunar infarct. Questionable small hyperacute infarct cannot be excluded. Moderate to significant generalized volume loss. ASSESSMENT: 1. Altered mental status, possible transient ischemic attack. CT scan is not very much diagnostic. 2. Hypertension. 3. Chronic atrial fibrillation. PLAN: We will give her 4 mg of Coumadin today. Order for carotid Doppler. Neurology evaluation has been requested. Request physical therapy. We will follow up with the patient in the a.m. Cj Wolfe MD
[2018-08-25 07:11] LABS: INR 2.08; PROTHROMBIN TIME 23.5 SECONDS (9.4-12.5)
[2018-08-25 07:25] LABS: HEMOGLOBIN 7.7 g/dL (12.0-16.0); MEAN CELL VOLUME 75.3 fl (80.0-105.0); MEAN CORPUSCULAR HEMOGLOBIN 20.9 pg (25.0-35.0); MEAN CORPUSCULAR HGB CONC 27.8 g/dl (31.0-37.0); MEAN PLATELET VOLUME 10.5 fl (7.0-11.0); RBC 3.68 10^6/uL (3.5-6.1); RED CELL DISTRIBUTION WIDTH 20.1 % (11.5-14.5); WHITE BLOOD COUNT 7.3 10^3/uL (4.5-11.0)
[2018-08-25 07:42] LABS: FREE T4 1.33 ng/dL (0.78-2.19)
[2018-08-25 07:45] LABS: ALB/GLOB RATIO 0.8 (1.1-1.8); ALBUMIN 3.6 g/dL (3.0-4.8); CALCIUM 8.6 mg/dL (8.4-10.5)
[2018-08-25] MEDS: Metoprolol Succinate 25 mg XL Tab PO SCH ×2 (09:34→17:23)
[2018-08-25] MEDS: Pantoprazole 40 mg EC Tab PO SCH (09:34)
[2018-08-25] MEDS ORDERED: Non Formulary Medication (Rosuvastatin Calcium [Crestor] 10 MG) PO SCH (10:00)
[2018-08-25 10:24] LABS: HEMOGLOBIN 8.8 g/dL (12.0-16.0); MEAN CELL VOLUME 75.7 fl (80.0-105.0); MEAN CORPUSCULAR HEMOGLOBIN 21.6 pg (25.0-35.0); MEAN CORPUSCULAR HGB CONC 28.5 g/dl (31.0-37.0); MEAN PLATELET VOLUME 10.2 fl (7.0-11.0); RBC 4.08 10^6/uL (3.5-6.1); RED CELL DISTRIBUTION WIDTH 20.3 % (11.5-14.5); WHITE BLOOD COUNT 8.4 10^3/uL (4.5-11.0)
--- NOTE | 2018-08-25 11:52 | PN ---
DATE: 08/25/2018 SUBJECTIVE: The patient is a 78-year-old who was admitted because of expressive dysphasia. It is all by the time she came to ER. The patient was admitted for close observation. She was found to be anemic this morning. Upon enquiring from family, she did not have colonoscopy for very long time. I did not notice any black stools. No history of peptic ulcer disease. She does have history of AFib, and she has been on anticoagulant . PHYSICAL EXAMINATION: GENERAL: She is awake and alert, able to communicate, hard of hearing. VITAL SIGNS: She is afebrile, pulse 73, respirations 19, blood pressure 158/72. LUNGS: Bilateral fair airflow. No rhonchi or crackle. HEART: S1, S2 audible. ABDOMEN: Soft, obese, nontender. No rebound. No guarding. NEUROLOGIC: The patient is awake, alert, oriented, able to communicate, able to get out of bed with assistance. EXTREMITIES: Bilateral legs, +1 edema. LABORATORY EXAMINATION: WBC is 7.3, hemoglobin 7.7, hematocrit 27, platelet of 347. PT is 23.5, INR 2.08. Chemistry: Sodium 138, potassium 3.8, chloride 100, CO2 of 31, BUN 15, creatinine 1.1, blood sugar of 85. Thyroid profile is within normal limits. Urine cultures are pending. ASSESSMENT: 1. Transient ischemic attack. 2. Anemia. 3. History of hypertension. 4. Hypothyroidism. 5. Chronic atrial fibrillation. 6. Hyperlipidemia. PLAN: We will order stool for Hemoccult. We will order for CBC, CMP in a.m., and GI evaluation has been requested. Stool for Hemoccult is requested. Carotid Doppler is unremarkable. We will discuss with the GI team if her hemoglobin remains stable, we might be able to send her home and she can have colonoscopy as outpatient. Cj Wolfe MD
--- NOTE | 2018-08-25 11:55 | CP.PCM.CON ---
<Pee Parker - Last Filed: 08/25/18 15:17> History of Present Illness - History of Present Illness History of Present Illness: PGY4 GI fellow consult note The following obtained from chart review, hospital staff, and the daughter interpreting due to Frisian language being the patient's primary language. Patient is a 78-year-old Frisian female with history of atrial fibrillation (on warfarin), hypertension, chronic constipation (on linaclotide), history of perirectal abscess status post surgical drainage in 2014, GERD, vitamin D deficiency presenting with dysarthria and motor deficits concerning for stroke. While en route to the hospital via ambulance symptoms spontaneously resolved in the ambulance more suggestive of TIA. However, she was found to be anemic with a hemoglobin down to 7.7 from a baseline of about 9. Therefore, GI was consulted for further evaluation. As far as bowel movements, patient typically moves her bowels every day with f ormed brown stool. However, one daughter notices intermittent bright red blood per rectum that she attributes to known hemorrhoids. Denied any dysphasia, weight loss, melena, abdominal pain, nor family history of colorectal cancer or GI problems. Around the time of her perirectal abscess in 2014, she was instructed to follow-up with outpatient endoscopy but it seems like she did not based upon chart review. Family at bedside does not believe she had any prior EGD nor CSPY. 12 point ROS negative other than stated above MHx: See above Surgical history: Cataracts and perirectal abscess drainage Medications: Reviewed in chart family history: Denied GI problems or colorectal cancer Social history: Former light tobacco user (quit 15 years ago), denied 2 Allergies: No known drug allergies Past Patient History - Infectious Disease Hx of Infectious Diseases: None - Tetanus Immunizations Tetanus Immunization: Unknown - Past Medical History & Family History Past Medical History?: Yes - Past Social History Smoking Status: Former Smoker - CARDIAC Hx Cardiac Disorders: Yes (AFIB, HLD) Hx Hypertension: Yes - PULMONARY Hx Chronic Obstructive Pulmonary Disease (COPD): No - NEUROLOGICAL Hx Neurological Disorder: No - HEENT Hx HEENT Problems: Yes Hx Cataracts: Yes Hx Deafness: Yes ([place]) - RENAL Hx Chronic Kidney Disease: No - ENDOCRINE/METABOLIC Hx Endocrine Disorders: No - HEMATOLOGICAL/ONCOLOGICAL Hx Blood Disorders: Yes Hx Anemia: Yes Hx Blood Transfusions: Yes - INTEGUMENTARY Hx Dermatological Problems: No - MUSCULOSKELETAL/RHEUMATOLOGICAL Hx Falls: No - GASTROINTESTINAL Hx Gastrointestinal Disorders: Yes (gi bleed) - GENITOURINARY/GYNECOLOGICAL Hx Genitourinary Disorders: Yes Hx Hematuria: Yes - PSYCHIATRIC Hx Psychophysiologic Disorder: No Hx Substance Use: No - SURGICAL HISTORY Other/Comment: drain to buttock - ANESTHESIA Hx Anesthesia: No Meds Allergies/Adverse Reactions: Allergies Allergy/AdvReac Type Severity Reaction Status Date / Time No Known Allergies Allergy Verified 08/24/18 12:05 - Medications Medications: Current Medications Apixaban (Eliquis) 5 mg PO BID [facility]; Protocol Last Admin: 08/25/18 09:34 Dose: 5 mg Atorvastatin Calcium (Lipitor) 40 mg PO DIN [facility] Last Admin: 08/24/18 18:20 Dose: 40 mg Docusate Sodium (Colace) 100 mg PO DAILY [facility] Last Admin: 08/25/18 09:33 Dose: 100 mg Furosemide (Lasix) 40 mg IVP DAILY [facility] Last Admin: 08/25/18 09:35 Dose: 40 mg Ceftriaxone Sodium (Rocephin 1 Gram Ivpb) 1 gm in 100 mls @ 100 mls/hr IVPB DAILY [facility]; Protocol Metoprolol Succinate (Toprol Xl) 25 mg PO BID [facility] Last Admin: 08/25/18 09:34 Dose: 25 mg Pantoprazole Sodium (Protonix Ec Tab) 40 mg PO DAILY [facility] Last Admin: 08/25/18 09:34 Dose: 40 mg Physical Exam - Constitutional Appears: Well, No Acute Distress, Chronically Ill - Head Exam Head Exam: ATRAUMATIC, NORMAL INSPECTION - Eye Exam Eye Exam: Normal appearance. absent: Scleral icterus - ENT Exam ENT Exam: Mucous Membranes Moist. absent: Mucous Membranes Dry - Respiratory Exam Respiratory Exam: Clear to Auscultation Bilateral, NORMAL BREATHING PATTERN. absent: Accessory Muscle Use - Cardiovascular Exam Cardiovascular Exam: REGULAR RHYTHM, RRR - GI/Abdominal Exam GI & Abdominal Exam: Normal Bowel Sounds, Soft. absent: Bruit, Diminished Bowel Sounds, Distended, Firm, Guarding, Hernia, Mass, Organomegaly, Pulsatile Mass, Rebound, Rigid, Tenderness - Rectal Exam Additional comments: perirectal area with firm induration darker color not tender to palpation with possible sinus tract/fistula, multiple external hemorrhoid/skin tags (nonth rombosed hemorrhoids), brown stool visualized on JIMMY. - Neurological Exam Neurological exam: Alert, CN II-XII Intact - Psychiatric Exam Psychiatric exam: Normal Affect, Normal Mood - Skin Skin Exam: Dry, Warm Results - Vital Signs Recent Vital Signs: Last Vital Signs Temp 97 F L 08/25/18 06:00 Pulse 73 08/25/18 09:34 Resp 19 08/25/18 06:00 BP 158/72 H 08/25/18 09:35 Pulse Ox 99 08/25/18 06:00 - Labs Result Diagrams: 08/25/18 10:15 08/25/18 06:00 Labs: Laboratory Results - last 24 hr 08/24/18 08/24/18 08/24/18 09:58 10:00 23:21 WBC RBC Hgb Hct MCV MCH MCHC RDW Plt Count MPV PT INR Sodium Potassium Chloride Carbon Dioxide Anion Gap BUN Creatinine Est GFR ( Amer) Est GFR (Non-Af Amer) POC Glucose (mg/dL) 82 Random Glucose Hemoglobin A1c 5.9 Calcium Total Bilirubin AST ALT Alkaline Phosphatase Total Protein Albumin Globulin Albumin/Globulin Ratio Free T4 TSH 3rd Generation Blood Type A POSITIVE Antibody Screen Negative 08/25/18 08/25/18 08/25/18 06:00 06:00 06:00 WBC RBC Hgb Hct MCV MCH MCHC RDW Plt Count MPV PT 23.5 H INR 2.08 Sodium 139 Potassium 3.8 Chloride 100 Carbon Dioxide 31 Anion Gap 12 BUN 15 Creatinine 1.1 Est GFR ( Amer) 58 Est GFR (Non-Af Amer) 48 POC Glucose (mg/dL) Random Glucose 85 Hemoglobin A1c Calcium 8.6 Total Bilirubin 0.7 AST 24 ALT 13 Alkaline Phosphatase 74 Total Protein 7.8 Albumin 3.6 Globulin 4.3 Albumin/Globulin Ratio 0.8 L Free T4 1.33 TSH 3rd Generation 2.14 Blood Type Antibody Screen 08/25/18 08/25/18 08/25/18 06:00 07:32 10:15 WBC 7.3 D 8.4 RBC 3.68 4.08 Hgb 7.7 L 8.8 L Hct 27.7 L 30.9 L MCV 75.3 L 75.7 L MCH 20.9 L 21.6 L MCHC 27.8 L 28.5 L RDW 20.1 H 20.3 H Plt Count 347 342 MPV 10.5 10.2 PT INR Sodium Potassium Chloride Carbon Dioxide Anion Gap BUN Creatinine Est GFR ( Amer) Est GFR (Non-Af Amer) POC Glucose (mg/dL) 77 Random Glucose Hemoglobin A1c Calcium Total Bilirubin AST ALT Alkaline Phosphatase Total Protein Albumin Globulin Albumin/Globulin Ratio Free T4 TSH 3rd Generation Blood Type Antibody Screen Assessment & Plan - Assessment and Plan (Free Text) Assessment: 78-year-old Frisian female with A. fib (on warfarin), chronic constipation, history of perirectal abscess in 2015, GERD presenting with TIA found to have low hemoglobin. # Acute on chronic microcytic anemia: Hemoglobin down to 7.7 from a baseline of about 9. Repeat hemoglobin 8.8 without transfusion. Vital signs stable and rectal exam with brown stool. #History of perirectal abscess: Multiple areas of induration and possible fistula on rectal exam. However no significant erythema nor tenderness to bright ggest acute infection. However etiology raises the concern of underlying IBD #Endoscopy history: No previous endoscopies on file. And family is not sure that patient had any prior endoscopies Plan: - No signs of active GI bleeding at this time - Would benefit from EGD+CSPY, but would need bridging therapy given CHADSVASC at least 6 - Plan to discuss timing of procedures with primary physician - Cont PPI Patient discussed with Dr. Mayorga. Please see attestation for further recommendations/changes <Madeleine Mayorga V - Last Filed: 08/25/18 23:46> Meds - Medications Medications: Current Medications Apixaban (Eliquis) 5 mg PO BID [facility]; Protocol Last Admin: 08/25/18 17:23 Dose: 5 mg Atorvastatin Calcium (Lipitor) 40 mg PO DIN [facility] Last Admin: 08/25/18 17:23 Dose: 40 mg Docusate Sodium (Colace) 100 mg PO DAILY [facility] Last Admin: 08/25/18 09:33 Dose: 100 mg Furosemide (Lasix) 40 mg IVP DAILY [facility] Last Admin: 08/25/18 09:35 Dose: 40 mg Ceftriaxone Sodium (Rocephin 1 Gram Ivpb) 1 gm in 100 mls @ 100 mls/hr IVPB DAILY [facility]; Protocol Last Admin: 08/25/18 12:47 Dose: 100 mls/hr Metoprolol Succinate (Toprol Xl) 25 mg PO BID [facility] Last Admin: 08/25/18 17:23 Dose: 25 mg Pantoprazole Sodium (Protonix Ec Tab) 40 mg PO DAILY [facility] Last Admin: 08/25/18 09:34 Dose: 40 mg Results - Vital Signs Recent Vital Signs: Last Vital Signs Temp 98.3 F 08/25/18 18:00 Pulse 75 08/25/18 22:00 Resp 20 08/25/18 18:00 BP 141/80 08/25/18 18:00 Pulse Ox 99 08/25/18 06:00 - Labs Result Diagrams: 08/25/18 10:15 08/25/18 06:00 Labs: Laboratory Results - last 24 hr 08/25/18 08/25/18 08/25/18 06:00 06:00 06:00 WBC RBC Hgb Hct MCV MCH MCHC RDW Plt Count MPV PT 23.5 H INR 2.08 Sodium 139 Potassium 3.8 Chloride 100 Carbon Dioxide 31 Anion Gap 12 BUN 15 Creatinine 1.1 Est GFR ( Amer) 58 Est GFR (Non-Af Amer) 48 POC Glucose (mg/dL) Random Glucose 85 Calcium 8.6 Total Bilirubin 0.7 AST 24 ALT 13 Alkaline Phosphatase 74 Total Protein 7.8 Albumin 3.6 Globulin 4.3 Albumin/Globulin Ratio 0.8 L Free T4 1.33 TSH 3rd Generation 2.14 Stool Occult Blood 08/25/18 08/25/18 08/25/18 06:00 07:32 10:15 WBC 7.3 D 8.4 RBC 3.68 4.08 Hgb 7.7 L 8.8 L Hct 27.7 L 30.9 L MCV 75.3 L 75.7 L MCH 20.9 L 21.6 L MCHC 27.8 L 28.5 L RDW 20.1 H 20.3 H Plt Count 347 342 MPV 10.5 10.2 PT INR Sodium Potassium Chloride Carbon Dioxide Anion Gap BUN Creatinine Est GFR ( Amer) Est GFR (Non-Af Amer) POC Glucose (mg/dL) 77 Random Glucose Calcium Total Bilirubin AST ALT Alkaline Phosphatase Total Protein Albumin Globulin Albumin/Globulin Ratio Free T4 TSH 3rd Generation Stool Occult Blood 08/25/18 08/25/18 08/25/18 11:54 16:52 19:35 WBC RBC Hgb Hct MCV MCH MCHC RDW Plt Count MPV PT INR Sodium Potassium Chloride Carbon Dioxide Anion Gap BUN Creatinine Est GFR ( Amer) Est GFR (Non-Af Amer) POC Glucose (mg/dL) 115 H 96 Random Glucose Calcium Total Bilirubin AST ALT Alkaline Phosphatase Total Protein Albumin Globulin Albumin/Globulin Ratio Free T4 TSH 3rd Generation Stool Occult Blood Negative 08/25/18 21:12 WBC RBC Hgb Hct MCV MCH MCHC RDW Plt Count MPV PT INR Sodium Potassium Chloride Carbon Dioxide Anion Gap BUN Creatinine Est GFR ( Amer) Est GFR (Non-Af Amer) POC Glucose (mg/dL) 118 H Random Glucose Calcium Total Bilirubin AST ALT Alkaline Phosphatase Total Protein Albumin Globulin Albumin/Globulin Ratio Free T4 TSH 3rd Generation Stool Occult Blood Attending/Attestation - Attestation I have personally seen and examined this patient.: Yes I have fully participated in the care of the patient.: Yes I have reviewed all pertinent clinical information: Yes Notes (Text): This is an addendum to GI consult report dictated by the GI Fellow.The patient was seen and examined earlier. Medical records, lab studies, imagings were reviewed. Last 24 hours events reviewed. Agreed with the above treatment plan as outlined in GI Fellow 's notes with the addition of the following 08/25/18 23:43
[2018-08-25] MEDS: cefTRIAXone 1 gm 1 GM/100 ML BAG IVPB SCH (12:47)
[2018-08-26 07:49] LABS: BASO # 0.05 K/mm3 (0.0-2.0); BASO % 0.5 % (0.0-3.0); EOS # 0.2 (0.0-0.7); EOS % 1.9 % (1.5-5.0); HEMOGLOBIN 7.7 g/dL (12.0-16.0); LYMPH # 1.8 (1.2-3.4); LYMPH % 16.4 % (22.0-35.0); MEAN CELL VOLUME 75.3 fl (80.0-105.0); MEAN CORPUSCULAR HEMOGLOBIN 21.1 pg (25.0-35.0); MEAN PLATELET VOLUME 10.3 fl (7.0-11.0); MONO # 1.3 (0.1-0.6); MONO % 11.4 % (1.0-6.0); RBC 3.65 10^6/uL (3.5-6.1); RED CELL DISTRIBUTION WIDTH 20.2 % (11.5-14.5); WHITE BLOOD COUNT 11.1 10^3/uL (4.5-11.0)
[2018-08-26] MEDS: Pantoprazole 40 mg EC Tab PO SCH (10:20)
[2018-08-26] MEDS: cefTRIAXone 1 gm 1 GM/100 ML BAG IVPB SCH (10:22)
[2018-08-26] MEDS: Metoprolol Succinate 25 mg XL Tab PO SCH ×2 (10:22→17:17)
--- NOTE | 2018-08-26 18:18 | CP.PCM.PN ---
<Pee Parker - Last Filed: 08/26/18 18:13> Subjective - Date & Time of Evaluation Date of Evaluation: 08/26/18 Time of Evaluation: 11:50 - Subjective Subjective: PGY-4 GI Fellow Prog Note Pt lying in bed when seen this AM. Daughter interprets that pt is doing OK, tolerating diet. Denied signs of bleeding. 5 point ROS negative other than stated above Objective - Vital Signs/Intake and Output Vital Signs (last 24 hours): Temp Pulse Resp BP Pulse Ox 97.6 F 61 18 119/53 L 96 08/26/18 18:00 08/26/18 18:00 08/26/18 18:00 08/26/18 18:00 08/26/18 17:50 Intake and Output: 08/26/18 08/26/18 06:59 18:59 Intake Total 0 305 Output Total 600 Balance -600 305 - Medications Medications: Current Medications Atorvastatin Calcium (Lipitor) 40 mg PO DIN [facility] Last Admin: 08/26/18 17:09 Dose: 40 mg Docusate Sodium (Colace) 100 mg PO DAILY [facility] Last Admin: 08/26/18 10:20 Dose: 100 mg Furosemide (Lasix) 40 mg IVP DAILY [facility] Last Admin: 08/26/18 10:21 Dose: 40 mg Ceftriaxone Sodium (Rocephin 1 Gram Ivpb) 1 gm in 100 mls @ 100 mls/hr IVPB DAILY [facility]; Protocol Last Admin: 08/26/18 10:22 Dose: 100 mls/hr Metoprolol Succinate (Toprol Xl) 25 mg PO BID [facility] Last Admin: 08/26/18 17:17 Dose: Not Given Pantoprazole Sodium (Protonix Ec Tab) 40 mg PO DAILY [facility] Last Admin: 08/26/18 10:20 Dose: 40 mg - Labs Labs: 08/26/18 07:15 08/25/18 06:00 PT 23.5 SECONDS (9.4-12.5) H 08/25/18 06:00 INR 2.08 08/25/18 06:00 APTT 30.4 Seconds (26.9-38.3) 08/24/18 09:58 - Constitutional Appears: Well, No Acute Distress - Head Exam Head Exam: ATRAUMATIC, NORMAL INSPECTION - ENT Exam ENT Exam: Mucous Membranes Moist. absent: Mucous Membranes Dry - Respiratory Exam Respiratory Exam: NORMAL BREATHING PATTERN. absent: Accessory Muscle Use, Respiratory Distress - GI/Abdominal Exam GI & Abdominal Exam: Soft. absent: Bruit, Distended, Firm, Guarding, Rigid, Tenderness, Mass, Organomegaly, Pulsatile Mass, Rebound Assessment and Plan - Assessment and Plan (Free Text) Assessment: 78-year-old Montene[place] female with A. fib (on warfarin), chronic constipation, history of perirectal abscess in 2014, GERD presenting with TIA found to have low hemoglobin. # Acute on chronic microcytic anemia: Hemoglobin down to 7.7 from a baseline of about 9. Repeat hemoglobin 8.8 without transfusion, but down again. Vital signs stable and rectal exam with brown stool. #History of perirectal abscess: Multiple areas of induration and possible fistula on rectal exam. However no significant erythema nor tenderness to suggest acute infection. However etiology raises the concern of underlying IBD #Endoscopy history: No previous endoscopies on file. And family is not sure that patient had any prior endoscopies Plan: - Hgb downtrended again, transfusion per primary - Plan for EGD+CSPY on 08/29/18 - Anticoagulation bridge from warfarin per primary - Cont PPI - Monitor Hgb Patient seen and discussed with Dr. Mayorga. Please see attestation for further recommendations/changes <Madeleine Mayorga V - Last Filed: 08/26/18 23:37> Objective - Vital Signs/Intake and Output Vital Signs (last 24 hours): Temp Pulse Resp BP Pulse Ox 97.6 F 54 L 18 119/53 L 96 08/26/18 18:00 08/26/18 18:00 08/26/18 18:00 08/26/18 18:00 08/26/18 17:50 Intake and Output: 08/26/18 08/27/18 18:59 06:59 Intake Total 1380 Output Total 700 Balance 680 - Medications Medications: Current Medications Atorvastatin Calcium (Lipitor) 40 mg PO DIN [facility] Last Admin: 08/26/18 17:09 Dose: 40 mg Docusate Sodium (Colace) 100 mg PO DAILY [facility] Last Admin: 08/26/18 10:20 Dose: 100 mg Furosemide (Lasix) 40 mg IVP DAILY [facility] Last Admin: 08/26/18 10:21 Dose: 40 mg Ceftriaxone Sodium (Rocephin 1 Gram Ivpb) 1 gm in 100 mls @ 100 mls/hr IVPB DAILY [facility]; Protocol Last Admin: 08/26/18 10:22 Dose: 100 mls/hr Metoprolol Succinate (Toprol Xl) 25 mg PO BID [facility] Last Admin: 08/26/18 17:17 Dose: Not Given Pantoprazole Sodium (Protonix Ec Tab) 40 mg PO DAILY [facility] Last Admin: 08/26/18 10:20 Dose: 40 mg - Labs Labs: 08/26/18 07:15 08/25/18 06:00 PT 23.5 SECONDS (9.4-12.5) H 08/25/18 06:00 INR 2.08 08/25/18 06:00 APTT 30.4 Seconds (26.9-38.3) 08/24/18 09:58 Attending/Attestation - Attestation I have personally seen and examined this patient.: Yes I have fully participated in the care of the patient.: Yes I have reviewed all pertinent clinical information, including history, physical exam and plan: Yes Notes (Text): This is an addendum to GI progress report dictated by the GI Fellow. The patient was seen and examined earlier. Medical records, lab studies, imagings were reviewed. Last 24 hours events reviewed. Agreed with the above treatment plan as outlined in GI Fellow 's notes with the addition of the following Hemoglobin shows downward trend History of A. 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 Wolfe 08/26/18 23:33
--- NOTE | 2018-08-26 19:27 | PN ---
DATE: 08/26/2018 SUBJECTIVE: The patient is a 78-year-old, seen and examined, lying in bed, seems to be comfortable, wants to get out of bed and walk, daughter by the bedside. PHYSICAL EXAMINATION VITAL SIGNS: She is afebrile, pulse 68, respiration 18, and blood pressure 137/58. LUNGS: Bilateral fair airflow. No rhonchi or crackle. HEART: S1 and S2 audible. ABDOMEN: Soft, obese and nontender. No rebound. No guarding. NEUROLOGIC: She is awake and alert. Hard of hearing. EXTREMITIES: Bilateral legs, +2 edema. LABORATORY DATA: WBC 11.1, hemoglobin 7.7, hematocrit 27.5 and platelets of 321. PT 23.5, INR 2.08. Chemistry: Blood sugar is 187. Urinalysis shows 10-15 wbc's growing corynebacterium species . Blood cultures are negative. ASSESSMENT: 1. Status post transient ischemic attack. 2. Iron deficiency anemia. 3. Chronic atrial fibrillation. 4. Hypertension. 5. Chronic constipation. PLAN: We will take her off of Coumadin. We will prep her for endoscopy and colonoscopy. We will transfuse 1 packed RBCs today. Continue her on Lasix, statin, and Protonix. We will follow up the patient in a.m. Cj Wolfe MD
--- NOTE | 2018-08-26 23:22 | CP.PCM.PN ---
Subjective - Date & Time of Evaluation Date of Evaluation: 08/26/18 Time of Evaluation: 23:15 - Subjective Subjective: PGY-3 for House Doc CC: Sinus pause 2.20 sec S: Hao #[id number]. Macedonian translation. Pt denies CP, dizziness. No pain. Comfortable. O: VS HR 58, 131/62, T97.7, 97%, RR18 EOMI, Non-icteric RRR, S1, S2 CTA b/l soft NTND multiple skin tears along gluteal b/l EKG: A fib, rate controlled at 62 A: Sinus pause likely due to beta-agonist and A-fib with slow ventribular response, aysmptomatic Skin ulcer likely incontinent associated dermatitis P: Pt is on long-acting beta trino. Usually daily dose. But she is on BID. Dr Wolfe requested to hold evening dose of metoprolol this evening. I am holding all toprol BID for now. Pending primary care doctor evaluation in AM. Meanwhile, Continue monitor BP and HR rthymn wound care moisture control Objective - Vital Signs/Intake and Output Vital Signs (last 24 hours): Temp Pulse Resp BP Pulse Ox 97.6 F 54 L 18 119/53 L 96 08/26/18 18:00 08/26/18 18:00 08/26/18 18:00 08/26/18 18:00 08/26/18 17:50 Intake and Output: 08/26/18 08/27/18 18:59 06:59 Intake Total 1380 Output Total 700 Balance 680 - Medications Medications: Current Medications Atorvastatin Calcium (Lipitor) 40 mg PO DIN [facility] Last Admin: 08/26/18 17:09 Dose: 40 mg Docusate Sodium (Colace) 100 mg PO DAILY [facility] Last Admin: 08/26/18 10:20 Dose: 100 mg Furosemide (Lasix) 40 mg IVP DAILY [facility] Last Admin: 08/26/18 10:21 Dose: 40 mg Ceftriaxone Sodium (Rocephin 1 Gram Ivpb) 1 gm in 100 mls @ 100 mls/hr IVPB DAILY [facility]; Protocol Last Admin: 08/26/18 10:22 Dose: 100 mls/hr Metoprolol Succinate (Toprol Xl) 25 mg PO BID [facility] Last Admin: 08/26/18 17:17 Dose: Not Given Pantoprazole Sodium (Protonix Ec Tab) 40 mg PO DAILY [facility] Last Admin: 08/26/18 10:20 Dose: 40 mg - Labs Labs: 08/26/18 07:15 08/25/18 06:00 PT 23.5 SECONDS (9.4-12.5) H 08/25/18 06:00 INR 2.08 08/25/18 06:00 APTT 30.4 Seconds (26.9-38.3) 08/24/18 09:58
[2018-08-27] MEDS: Pantoprazole 40 mg EC Tab PO SCH (09:36)
--- NOTE | 2018-08-27 10:34 | CARD ---
APPROVED REPORT Date of service: 08/26/2018 EKG Measurement Heart [id number] <Conclusion> Pooe Quality EKG. Atrial fibrillation Nonspecific ST and T wave abnormality, probably digitalis effect Abnormal ECG
[2018-08-27] MEDS: cefTRIAXone 1 gm 1 GM/100 ML BAG IVPB SCH (11:34)
--- NOTE | 2018-08-27 12:13 | CP.PCM.PCO ---
Physician Communication Note - Physician Communication Note Physician Communication Note: patient for ENDO/Colonscopy 08/29/18 as per GI
--- NOTE | 2018-08-27 12:14 | CP.PCM.PCO ---
Physician Communication Note - Physician Communication Note Physician Communication Note: echo pending
[2018-08-27 12:44] LABS: BASO # 0.08 K/mm3 (0.0-2.0); BASO % 1.1 % (0.0-3.0); EOS # 0.3 (0.0-0.7); EOS % 4.8 % (1.5-5.0); LYMPH # 1.9 (1.2-3.4); LYMPH % 26.5 % (22.0-35.0); MEAN CELL VOLUME 77.2 fl (80.0-105.0); MEAN CORPUSCULAR HEMOGLOBIN 22.6 pg (25.0-35.0); MEAN CORPUSCULAR HGB CONC 29.3 g/dl (31.0-37.0); MEAN PLATELET VOLUME 10.2 fl (7.0-11.0); MONO # 0.7 (0.1-0.6); MONO % 9.3 % (1.0-6.0); RBC 4.38 10^6/uL (3.5-6.1); RED CELL DISTRIBUTION WIDTH 19.6 % (11.5-14.5); WHITE BLOOD COUNT 7.1 10^3/uL (4.5-11.0)
[2018-08-27 12:48] LABS: HEMOGLOBIN 9.9 g/dL (12.0-16.0)
[2018-08-27 12:54] LABS: IRON 58 ug/dL (45-180)
[2018-08-27 12:55] LABS: ALB/GLOB RATIO 0.8 (1.1-1.8); ALBUMIN 3.9 g/dL (3.0-4.8); ALT/SGPT < 6 U/L (7-56); AST/SGOT 39 U/L (14-36); BLOOD UREA NITROGEN 21 mg/dL (7-21); CALCIUM 9.1 mg/dL (8.4-10.5); GFR NON-AFRICAN AMERICAN 54
[2018-08-27 13:04] LABS: % IRON SATURATION 14 % (20-55); TOTAL IRON BINDING CAPACITY 408 ug/dL (265-497)
--- NOTE | 2018-08-27 13:07 | CP.PCM.PN ---
<Suzanna Mcleod - Last Filed: 08/27/18 13:15> Subjective - Date & Time of Evaluation Date of Evaluation: 08/27/18 Time of Evaluation: 13:05 - Subjective Subjective: Gastroenterology Fellow/PGY6 Progress Note Patient resting comfortably. Denies abdominal pain, melena, or hematochezia. Tolerating diet. Had bowel movement yesterday. A 12-point review of systems negative except for as above. Objective - Vital Signs/Intake and Output Vital Signs (last 24 hours): Temp Pulse Resp BP Pulse Ox 98.5 F 85 20 150/80 98 08/27/18 06:00 08/27/18 06:00 08/27/18 06:00 08/27/18 09:35 08/27/18 06:00 Intake and Output: 08/27/18 08/27/18 06:59 18:59 Intake Total 240 Output Total 400 Balance -160 - Medications Medications: Current Medications Atorvastatin Calcium (Lipitor) 40 mg PO DIN [facility] Last Admin: 08/26/18 17:09 Dose: 40 mg Docusate Sodium (Colace) 100 mg PO DAILY [facility] Last Admin: 08/27/18 09:36 Dose: 100 mg Furosemide (Lasix) 40 mg IVP DAILY [facility] Last Admin: 08/27/18 09:35 Dose: 40 mg Ceftriaxone Sodium (Rocephin 1 Gram Ivpb) 1 gm in 100 mls @ 100 mls/hr IVPB DAILY [facility]; Protocol Last Admin: 08/27/18 11:34 Dose: 100 mls/hr Metoprolol Succinate (Toprol Xl) 25 mg PO BRK [facility] Pantoprazole Sodium (Protonix Ec Tab) 40 mg PO DAILY [facility] Last Admin: 08/27/18 09:36 Dose: 40 mg - Labs Labs: 08/27/18 12:30 08/27/18 12:30 PT 23.5 SECONDS (9.4-12.5) H 08/25/18 06:00 INR 2.08 08/25/18 06:00 APTT 30.4 Seconds (26.9-38.3) 08/24/18 09:58 - Constitutional Appears: Non-toxic, No Acute Distress - Head Exam Head Exam: ATRAUMATIC, NORMOCEPHALIC - Eye Exam Eye Exam: EOMI, PERRL. absent: Scleral icterus Pupil Exam: PERRL. absent: Miosis, Mydriatic - ENT Exam ENT Exam: Mucous Membranes Moist, Normal Oropharynx - Neck Exam Neck Exam: Full ROM, Normal Inspection - Respiratory Exam Respiratory Exam: Clear to Ausculation Bilateral. absent: Rales, Rhonchi, Wheezes - Cardiovascular Exam Cardiovascular Exam: Irregular Rhythm, +S1, +S2 - GI/Abdominal Exam GI & Abdominal Exam: Soft, Normal Bowel Sounds. absent: Distended, Firm, Guarding, Rigid, Tenderness, Organomegaly, Rebound - Extremities Exam Extremities Exam: Normal Inspection. absent: Pedal Edema - Neurological Exam Neurological Exam: Alert, Awake - Psychiatric Exam Psychiatric exam: Normal Affect, Normal Mood - Skin Skin Exam: Dry, Intact, Normal Color, Warm Assessment and Plan - Assessment and Plan (Free Text) Assessment: 78-year-old female with PMH of Afib (on warfarin), constipation, perianal abscess 2014, Boerhaave syndrome, presenting with TIA. GI consultation for acute on chronic microcytic anemia in setting of anticoagulation use for Afib and questionable fistula (08/26/18) with history of perianal abscess and unclear endoscopic history. Plan: -08/26 s/p 1 U pRBCs with appropriate response -primary team managing anticoagulation bridge prior to endoscopic evaluation -follow up PT/INR today -EGD and colonoscopy on Mon,08/29/18 -on PPI PO ACB -clear liquid diet tomorrow -will follow clinical course <Madeleine Mayorga V - Last Filed: 08/27/18 23:44> Objective - Vital Signs/Intake and Output Vital Signs (last 24 hours): Temp Pulse Resp BP Pulse Ox 97.1 F L 68 19 174/72 H 98 08/27/18 18:00 08/27/18 18:00 08/27/18 18:00 08/27/18 18:00 08/27/18 06:00 Intake and Output: 08/27/18 08/28/18 18:59 06:59 Intake Total 100 Balance 100 - Medications Medications: Current Medications Atorvastatin Calcium (Lipitor) 40 mg PO DIN [facility] Last Admin: 08/27/18 17:51 Dose: 40 mg Docusate Sodium (Colace) 100 mg PO DAILY [facility] Last Admin: 08/27/18 09:36 Dose: 100 mg Furosemide (Lasix) 40 mg IVP DAILY [facility] Last Admin: 08/27/18 09:35 Dose: 40 mg Ceftriaxone Sodium (Rocephin 1 Gram Ivpb) 1 gm in 100 mls @ 100 mls/hr IVPB DAILY [facility]; Protocol Last Admin: 08/27/18 11:34 Dose: 100 mls/hr Metoprolol Succinate (Toprol Xl) 25 mg PO BRK [facility] Pantoprazole Sodium (Protonix Ec Tab) 40 mg PO DAILY [facility] Last Admin: 08/27/18 09:36 Dose: 40 mg - Labs Labs: 08/27/18 12:30 08/27/18 12:30 PT 18.4 SECONDS (9.4-12.5) H 08/27/18 15:50 INR 1.66 08/27/18 15:50 APTT 30.4 Seconds (26.9-38.3) 08/24/18 09:58 Attending/Attestation - Attestation I have personally seen and examined this patient.: Yes I have fully participated in the care of the patient.: Yes I have reviewed all pertinent clinical information, including history, physical exam and plan: Yes Notes (Text): patient's INR has come down may need a Lovenox bridge therapy History of anemia and drop in blood count Patient needs long-term anticoagulation therapy We would schedule for colonoscopy and also endoscopy Discussed with the patient's daughter at length yesterday 08/27/18 23:43
[2018-08-27 16:09] LABS: INR 1.66; PROTHROMBIN TIME 18.4 SECONDS (9.4-12.5)
[2018-08-27 17:11] LABS: FERRITIN 10.7 ng/mL
--- NOTE | 2018-08-27 17:23 | PN ---
DATE: 08/27/2018 SUBJECTIVE: The patient is 78 years old, seen and examined, lying in bed, seems to be comfortable. No nausea, no vomiting, no diarrhea, no dizziness. PHYSICAL EXAMINATION: VITAL SIGNS: She is afebrile, pulse 85, respiration 20, and blood pressure 150/80. LUNGS: Bilateral fair airflow. No rhonchi or crackle. HEART: S1 and S2 audible, irregular, rate controlled. ABDOMEN: Soft and nontender. No rebound. No guarding. NEUROLOGIC: The patient is awake, alert, oriented and able to communicate. EXTREMITIES: Bilateral legs, +1 edema. LABORATORY DATA: WBC 11.1, hemoglobin 7.7, hematocrit 27.5, blood sugar is 88. ASSESSMENT: 1. Status post transient ischemic attack. 2. Iron deficiency anemia. 3. History of atrial fibrillation. 4. Hyperlipidemia. 5. History of chronic constipation. PLAN: So the plan is, the patient is off Coumadin. She received blood transfusions. We will follow up with her CBC, CMP in the a.m. The patient is scheduled to have endoscopy and colonoscopy done on Monday. Since the patient has been bradycardic, her beta trino is on hold. I will start her on metoprolol succinate 25 mg and hold if the heart rate is below 60. Cj Wolfe MD
[2018-08-27 17:41] LABS: FOLATE 6.8 ng/mL
--- NOTE | 2018-08-27 18:26 | PN ---
DATE: 08/27/2018 NEUROLOGY FOLLOWUP CHIEF COMPLAINT: Followup for TIA symptoms today. The patient seen at the bedside and doing much better. No further worsening weakness. No further difficulty in speech. Carotid Doppler showed 39% artery. No acute events overnight. PAST MEDICAL HISTORY: History of AFib, hypertension, chronic constipation, vitamin D deficiency, GERD, history of TIA in the past. REVIEW OF SYSTEMS: Fourteen-point review of systems is as per HPI. FAMILY HISTORY: Noncontributory. MEDICATIONS: Reviewed by nurse's reconciliation sheet. LABORATORY DATA: Sodium 140, potassium 3.8, chloride of 101, carbon dioxide 33, BUN of 21, creatinine 1, and blood sugar 133. PHYSICAL EXAMINATION: GENERAL: The patient is lying in bed in no acute distress. VITAL SIGNS: Temperature 98.5, pulse 85, blood pressure 150/80, respiratory rate of 20, and oxygen saturation 90% on room air. HEENT: Head: Atraumatic and normocephalic. PERRLA. Extraocular muscles intact. NECK: Supple. No JVD. No adenopathy noted. LUNGS: Clear to auscultation. No adventitious sounds. HEART: S1 and S2. Normal rate and rhythm. No murmurs, rubs, or gallops. ABDOMEN: Soft, nontender, and nondistended. Bowel sounds present. EXTREMITIES: No clubbing and no cyanosis. Peripheral pulses are 2+ bilaterally. NEUROLOGIC: The patient is alert and oriented to person, place, and year. Speech is fluent without any errors. Cranial nerves II through XII are intact. Motor exam; moves all extremities equally. Toes are downgoing bilaterally. Sensory exam; light touch, pinprick, proprioception and vibration are intact. DTRs are 2+ throughout one in both in knees and ankles. Coordination; [id number] is intact. No dysmetria noted. Gait is deferred for now. IMPRESSION: Transient ischemic attack. PLAN: At this time, we recommend: 1. Eliquis, Coumadin as well as statin, and Lipitor 40 mg p.o. daily for stroke prevention. 2. PT/OT evaluation. 3. Monitor electrolytes and correct accordingly. 4. Continue current and present medical management. Rakesh Ledesma MD [facility] # [phone]
--- NOTE | 2018-08-27 20:41 | CARD ---
APPROVED REPORT Date of service: 08/27/2018 EXAM: Two-dimensional and M-mode echocardiogram with Doppler and color Doppler. INDICATION CVA/TIA R/0 PFO BUBBLE STUDY 2D DIMENSIONS Left Atrium (2D)5.2 (1.6-4.0cm)IVSd1.2 (0.7-1.1cm) LVDd4.0 (3.9-5.9cm)PWd1.5 (0.7-1.1cm) LVDs2.8 (2.5-4.0cm)FS (%) 29.4 % LVEF (%)56.8 (>50%) M-Mode DIMENSIONS Aortic Root2.40 (2.2-3.7cm)Aortic Cusp Exc.1.10 (1.5-2.0cm) Aortic Valve AoV Peak Phlqquil926.0cm/Stevie Peak GR.17mmHg Mitral Valve E/A ratio0.0 TDI E/Lateral E'0.0E/Medial E'0.0 Tricuspid Valve TR Peak [id number]/[id number] [id number] Peak Gr.31mmHg [id number] LEFT VENTRICLE The left ventricle is normal size. There is normal left ventricular wall thickness. The left ventricular function is normal. The left ventricular ejection fraction is within the normal range. There is normal LV segmental wall motion. A Fib RIGHT VENTRICLE The right ventricle is normal size. There is normal right ventricular wall thickness. The right ventricular systolic function is normal. ATRIA The left atrium is moderately dilated. The right atrium is mildly dilated. The interatrial septum is intact AORTIC VALVE The aortic valve is not well visualized. There is trace aortic regurgitation. There is no aortic valvular stenosis. MITRAL VALVE The mitral valve is normal in structure. Mitral regurgitation is mild. There is no mitral valve stenosis. TRICUSPID VALVE There is mild tricuspid regurgitation. There is mild pulmonary hypertension. GREAT VESSELS The aortic root is normal in size. The IVC is normal in size and collapses >50% with inspiration. <Conclusion> There is normal left ventricular wall thickness. The left ventricular function is normal. The left ventricular ejection fraction is within the normal range. There is normal LV segmental wall motion. The left atrium is moderately dilated. There is trace aortic regurgitation. Mitral regurgitation is mild. There is mild tricuspid regurgitation. There is mild pulmonary hypertension. The interatrial septum is intact
[2018-08-28 06:32] LABS: BASO # 0.05 K/mm3 (0.0-2.0); BASO % 0.5 % (0.0-3.0); EOS # 0.4 (0.0-0.7); EOS % 3.7 % (1.5-5.0); HEMOGLOBIN 9.3 g/dL (12.0-16.0); LYMPH # 2.1 (1.2-3.4); LYMPH % 20.4 % (22.0-35.0); MEAN CELL VOLUME 76.6 fl (80.0-105.0); MEAN CORPUSCULAR HEMOGLOBIN 22.2 pg (25.0-35.0); MEAN PLATELET VOLUME 10.7 fl (7.0-11.0); MONO # 0.9 (0.1-0.6); MONO % 8.1 % (1.0-6.0); RBC 4.19 10^6/uL (3.5-6.1); RED CELL DISTRIBUTION WIDTH 19.8 % (11.5-14.5); WHITE BLOOD COUNT 10.5 10^3/uL (4.5-11.0)
[2018-08-28 06:45] LABS: INR 1.42; PARTIAL THROMBOPLASTIN TIME 28.8 Seconds (26.9-38.3)
[2018-08-28] MEDS: Metoprolol Succinate 25 mg XL Tab PO SCH (08:49)
[2018-08-28] MEDS: Pantoprazole 40 mg EC Tab PO SCH (09:09)
[2018-08-28] MEDS: cefTRIAXone 1 gm 1 GM/100 ML BAG IVPB SCH (09:10)
[2018-08-28 09:53] LABS: BLOOD UREA NITROGEN 17 mg/dL (7-21); CALCIUM 8.9 mg/dL (8.4-10.5); GFR NON-AFRICAN AMERICAN > 60
[2018-08-28] MEDS ORDERED: Enoxaparin 100 mg Syringe SC STA (11:37)
[2018-08-28] MEDS ORDERED: Peg-Electrolyte Oral Soln 4L (Golytely) PO ONE (13:00)
--- NOTE | 2018-08-28 14:17 | CP.PCM.PCO ---
Physician Communication Note - Physician Communication Note Physician Communication Note: EGD/Colonoscopy in AM
--- NOTE | 2018-08-28 14:50 | CP.PCM.PN ---
<Suzanna Mcleod - Last Filed: 08/28/18 14:47> Subjective - Date & Time of Evaluation Date of Evaluation: 08/28/18 Time of Evaluation: 14:47 - Subjective Subjective: Gastroenterology Fellow/PGY6 Progress Note Patient tolerated full liquid diet. No complaints overnight. A 12-point review of systems negative except for as above. Objective - Vital Signs/Intake and Output Vital Signs (last 24 hours): Temp Pulse Resp BP Pulse Ox 98.3 F 72 19 132/79 98 08/28/18 12:00 08/28/18 12:00 08/28/18 12:00 08/28/18 12:00 08/27/18 06:00 Intake and Output: 08/28/18 08/28/18 06:59 18:59 Intake Total 360 Output Total 400 Balance -40 - Medications Medications: Current Medications Atorvastatin Calcium (Lipitor) 40 mg PO DIN [facility] Last Admin: 08/27/18 17:51 Dose: 40 mg Bisacodyl (Dulcolax) 10 mg PO ONCE ONE Stop: 08/28/18 19:01 Docusate Sodium (Colace) 100 mg PO DAILY [facility] Last Admin: 08/28/18 09:09 Dose: 100 mg Metoprolol Succinate (Toprol Xl) 25 mg PO BRK [facility] Last Admin: 08/28/18 08:49 Dose: 25 mg Pantoprazole Sodium (Protonix Ec Tab) 40 mg PO DAILY [facility] Last Admin: 08/28/18 09:09 Dose: 40 mg - Labs Labs: 08/28/18 06:20 08/28/18 07:00 PT 16.0 SECONDS (9.4-12.5) H 08/28/18 06:20 INR 1.42 08/28/18 06:20 APTT 28.8 Seconds (26.9-38.3) 08/28/18 06:20 - Constitutional Appears: Non-toxic, No Acute Distress - Head Exam Head Exam: ATRAUMATIC, NORMOCEPHALIC - Eye Exam Eye Exam: EOMI, PERRL. absent: Scleral icterus Pupil Exam: PERRL. absent: Miosis, Mydriatic - ENT Exam ENT Exam: Mucous Membranes Moist, Normal Oropharynx - Neck Exam Neck Exam: Full ROM, Normal Inspection - Respiratory Exam Respiratory Exam: Clear to Ausculation Bilateral. absent: Rales, Rhonchi, Wheezes - Cardiovascular Exam Cardiovascular Exam: RRR, +S1, +S2. absent: Gallop, Rubs - GI/Abdominal Exam GI & Abdominal Exam: Soft, Normal Bowel Sounds. absent: Distended, Firm, Guarding, Rigid, Tenderness, Organomegaly, Rebound - Extremities Exam Extremities Exam: Normal Inspection. absent: Pedal Edema - Neurological Exam Neurological Exam: Alert, Awake - Psychiatric Exam Psychiatric exam: Normal Affect, Normal Mood - Skin Skin Exam: Dry, Intact, Normal Color, Warm Assessment and Plan - Assessment and Plan (Free Text) Assessment: 78 year old female with PMH of Afib (on warfarin), constipation, perianal abscess 2014, Boerhaave syndrome, presenting with TIA. GI consultation for acute on chronic microcytic anemia s/p 1U pRBC (08/26) in setting of anticoagulation use for Afib and questionable fistula (08/26/18) with history of perianal abscess and unclear endoscopic history. Plan: -received one dose of full dose Lovenox this morning -EGD and colonoscopy tomorrow, 08/29/18 -on PPI PO ACB -clear liquid diet, NPO after midnight -H/H stable -will follow clinical course <Madeleine Mayorga V - Last Filed: 08/28/18 23:33> Objective - Vital Signs/Intake and Output Vital Signs (last 24 hours): Temp Pulse Resp BP Pulse Ox 97 F L 77 19 153/98 H 98 08/28/18 18:00 08/28/18 22:00 08/28/18 18:00 08/28/18 18:00 08/27/18 06:00 - Medications Medications: Current Medications Atorvastatin Calcium (Lipitor) 40 mg PO DIN [facility] Last Admin: 08/28/18 16:34 Dose: 40 mg Docusate Sodium (Colace) 100 mg PO DAILY [facility] Last Admin: 08/28/18 09:09 Dose: 100 mg Metoprolol Succinate (Toprol Xl) 25 mg PO BRK [facility] Last Admin: 08/28/18 08:49 Dose: 25 mg Pantoprazole Sodium (Protonix Ec Tab) 40 mg PO DAILY [facility] Last Admin: 08/28/18 09:09 Dose: 40 mg - Labs Labs: 08/28/18 06:20 08/28/18 07:00 PT 16.0 SECONDS (9.4-12.5) H 08/28/18 06:20 INR 1.42 08/28/18 06:20 APTT 28.8 Seconds (26.9-38.3) 08/28/18 06:20 Attending/Attestation - Attestation I have personally seen and examined this patient.: Yes I have fully participated in the care of the patient.: Yes I have reviewed all pertinent clinical information, including history, physical exam and plan: Yes Notes (Text): This is an addendum to GI progress report dictated by the GI Fellow. The patient was seen and examined earlier. Medical records, lab studies, imagings were reviewed. Last 24 hours events reviewed. Agreed with the above treatment plan as outlined in GI Fellow 's notes with the addition of the following Patient is on Lovenox bridge therapy Anemia drop in blood count Patient need to be on anticoagulation for A. fib Scheduled for colonoscopy and endoscopic evaluation tomorrow Patient is refusing to take the preparation Discussed with the patient's daughters and they are planning to be in [facility] in a.m. to convince their mother to take the preparation 08/28/18 23:30
[2018-08-28] MEDS ORDERED: Magnesium Citrate Oral SOL (300 ml) PO ONE (16:48)
--- NOTE | 2018-08-28 17:19 | PN ---
DATE: 08/28/2018 SUBJECTIVE: The patient is 78 years old, seen and examined, lying in bed, seems to be comfortable, no active bleeding. No nausea or vomiting, no diarrhea. PHYSICAL EXAMINATION: VITAL SIGNS: She is afebrile, pulse 76, respirations 18, and blood pressure 148/74. LUNGS: Bilateral good airflow, no rhonchi or crackles. HEART: S1 and S2 audible. ABDOMEN: Soft, no palpable discomfort. NEUROLOGIC: She is awake and alert, able to communicate. EXTREMITIES: Bilateral legs, +1 edema. LABORATORY DATA: WBC is 10.5, hemoglobin 9.3, hematocrit 32.1, platelet of 342. PT is 16, INR 1.42. Chemistry: Sodium 139, potassium 3.8, chloride 102, CO2 of 31, BUN 17, creatinine 0.9, and blood sugar 104. Her blood cultures are negative. Urine culture is positive for bacterial species. ASSESSMENT: 1. Status post transient ischemic attack and slurred speech, fully recovered. 2. Symptomatic anemia, etiology unclear. The patient received 1 blood transfusion. The patient is on anticoagulant for atrial fibrillation. It is hard to do endoscopy and colonoscopy as outpatient. So, she is being prepped for colonoscopy and endoscopy tomorrow to rule out GI source of blood loss. 3. Chronic atrial fibrillation. 4. Hypertension. 5. Urinary tract infection. PLAN: The UTI seems to be colonization. We will discontinue her IV antibiotics. We will give her a dose of Lovenox and I will hold her Lasix. She will go for endoscopy, colonoscopy tomorrow. We will make further disposition and plan after that. Cj Wolfe MD
[2018-08-28] MEDS ORDERED: Bisacodyl 5mg EC Tab PO ONE ×2 (19:00→20:00)
[2018-08-29] MEDS ORDERED: Bisacodyl 5mg EC Tab PO ONE (07:00)
[2018-08-29] MEDS ORDERED: Magnesium Citrate Oral SOL (300 ml) PO ONE (07:00)
[2018-08-29] MEDS: Metoprolol Succinate 25 mg XL Tab PO SCH (08:59)
[2018-08-29] MEDS: Pantoprazole 40 mg EC Tab PO SCH (09:53)
--- NOTE | 2018-08-29 15:14 | PN ---
DATE: 08/29/2018 SUBJECTIVE: The patient is 78 years old, seen and examined, lying in bed, seems to be comfortable, no active bleeding. No nausea or vomiting. No chest pain or shortness of breath. PHYSICAL EXAMINATION: VITAL SIGNS: She is afebrile, pulse 81, respirations 18, blood pressure 142/75. LUNGS: Bilateral fair airflow. HEART: S1 and S2 audible. Irregular, rate controlled. ABDOMEN: Soft, nontender. No rebound. No guarding. NEUROLOGIC: She is awake and alert. Able to communicate. Has language barrier, she only speaks Welsh. LABORATORY EXAMINATION: There is no new lab available. Today, blood sugar is 115. ASSESSMENT AND PLAN: 1. Status post transient ischemic attack. 2. Chronic atrial fibrillation. 3. Hypertension. 4. History of peptic ulcer disease. 5. History of chronic constipation. 6. Anemia, status post blood transfusion. PLAN: The patient is going for endoscopy and colonoscopy. Her anticoagulants are on hold. She is being prepped for EGD and colonoscopy today. Then, she will be restarted on anticoagulant and will be discharged when therapeutic. ASSESSMENT AND PLAN: 1. Iron-deficiency anemia, rule out gastrointestinal bleed. 2. Hypertension. 3. Chronic atrial fibrillation. 4. Deconditioning, difficulty working, so plan for esophagogastroduodenoscopy, colonoscopy. Cj Wolfe MD
[2018-08-29] MEDS ORDERED: Sodium Chloride 0.9% 1,000 ML IV SCH (18:15)
[2018-08-29] MEDS ORDERED: Propofol 10 mg/ml Inj (20 ML) ONE (18:59)
[2018-08-29 20:13] VITALS: O2SAT 100
[2018-08-29 20:15] VITALS: RESP 18
[2018-08-30] MEDS: Metoprolol Succinate 25 mg XL Tab PO SCH (09:35)
[2018-08-30] MEDS: Pantoprazole 40 mg EC Tab PO SCH (09:38)
[2018-08-30] MEDS ORDERED: Enoxaparin 120 mg Syringe SC SCH (11:45)
--- NOTE | 2018-08-30 16:22 | PN ---
DATE: 08/30/2018 SUBJECTIVE: The patient is a 78-year-old [place] female who came to emergency after she was found to have slurred speech and she was having generalized weakness. According to the daughter, she was somewhat confused. The patient has neurological workup done that was unremarkable. She was found to be anemic; her hemoglobin dropped to 7.7 so she was given blood transfusions. GI consult was done by Dr. Mayorga. The patient underwent endoscopy and colonoscopy yesterday. She was found to have hemorrhoids. The patient also has history of chronic atrial fibrillation. She was taken off anticoagulants. She needed to be bridged to become therapeutic, so she is being transferred to TCU today. PHYSICAL EXAMINATION: GENERAL: She is alert, awake, and oriented, communicative. VITAL SIGNS: Pulse 80, respirations 18, blood pressure 122/61. LUNGS: Bilateral fair air flow. No rhonchi or crackles. HEART: S1 and S2 audible. ABDOMEN: Soft, obese, nontender, no rebound, no guarding. NEUROLOGICAL: The patient is awake, alert, and oriented, able to communicate. Moves all extremities. LABORATORY DATA: Blood sugar is 115. ASSESSMENT: 1. Status post transient ischemic attack, resolved. 2. Anemia. 3. Internal hemorrhoids. 4. Chronic atrial fibrillation. 5. Hyperlipidemia. 6. Chronic constipation. PLAN: We will start the patient on Lovenox and give her Coumadin 10 mg today and will follow up her PT/INR in a.m. She will be transferred to TCU where she will seek Physical Therapy. Cj Wolfe MD
[2018-08-30 17:54] VITALS: BP 128/57; TEMP 97.3
[2018-08-30 19:37] VITALS: PULSE 57
--- NOTE | 2018-08-30 22:35 | CON ---
DATE: 08/30/2018 REASON FOR CONSULTATION: Cardiac evaluation, bradycardia, AFib with slow rate 2.1 second pause, multiple. BRIEF CLINICAL HISTORY: This is a 78-year-old female, brought initially on 08/24/2018 by the daughter because of the difficulty in finding the words. Initial admitting diagnoses was UTI, sepsis, and TIA. The patient was in the telemetry, speaks only Kiswahili and though denies any chest pain or shortness of breath, found to be bradycardic with slow heart rate with 2.1 second multiple pauses, longest being 2.2. The patient was on Toprol-XL 25 p.o. b.i.d. and Coumadin. Denies any chest pain, shortness of breath, or any palpitation. PAST MEDICAL HISTORY: Significant for hypertension, chronic atrial fibrillation, hyperlipidemia, history of recent UTI, sepsis, and possible TIA. PAST SURGICAL HISTORY: Significant for left shoulder surgery. CURRENT MEDICATIONS: The patient at home was taking Coumadin 2 mg daily altered 1 mg, Crestor 10 mg daily, Protonix, Toprol-XL 25 p.o. b.i.d., Linzess daily, vitamin D, and Colace. ALLERGIES: NO KNOWN DRUG ALLERGY. REVIEW OF SYSTEMS: As per HPI. PHYSICAL EXAMINATION: VITAL SIGNS: Temperature afebrile, heart rate 78, and blood pressure 122/65. HEENT: PERRLA. Extraocular muscles intact. NECK: Supple. No carotid bruits or thyromegaly. CHEST: Clear to auscultation. HEART: S1 and S2 regular. ABDOMEN: Soft. EXTREMITIES: Clubbing and cyanosis negative. LABORATORY DATA: Blood workup as follows; WBC 10.5, hemoglobin 9.3, hematocrit 32.1, and platelet count 342. Chemistry shows sodium 139, potassium , chloride 102, CO2 of 31, anion gap of 9, BUN 17, and creatinine 0.9. Admitting EKG shows atrial fibrillation at a rate of 81. The patient had an echocardiography done 08/27/[address] Carvalho shows preserved LV function, calculated ejection fraction 56.8%, no segmental wall motion abnormality noted. Left atrium moderately dilated. Trace aortic regurgitation. Mild mitral regurgitation, mild tricuspid regurgitation, and RV systolic pressure calculated 41 mmHg. IMPRESSION: A 78-year-old female with past medical history significant for hypertension; hyperlipidemia; history of chronic atrial fibrillation, on Coumadin; admitted with transient ischemic attack type of symptoms; and urinary tract infection. The patient was found to be atrial fibrillation with slow rate, getting Toprol-XL 25 mg p.o. b.i.d. RECOMMENDATIONS: We will hold Toprol-XL, restart after washout period of 24 hours 12.5 p.o. b.i.d., and observe in Telemetry. Get lipid profile, TSH, and hemoglobin A1c. The patient had TSH 2.14, hemoglobin A1c 5.9, and cholesterol level done on admission, total cholesterol 111, LDL 49, HDL 44, and triglycerides 100. Today INR is 1.42. We will increase the Coumadin to get therapeutic range. Continue atorvastatin and give as a bridge Lovenox has been ordered and low dose metoprolol 12.5 mg from tomorrow after mentioned . At this point, does not sound the patient needs pacemaker, but we will keep close observation. Further recommendation will be made upon the hospital course. We will follow with you. Thank you Dr. Wolfe for providing us the opportunity in taking care of the patient, Jody Stevens. Mariela Neri MD
== END 2018-08-30 19:41 | DRG 812 ==
LOC: ED 09:28 → ERH 11:03 → 2RSO 22:08 → 2RNO 08-27 11:57
PROVIDERS: ADMIT Internal Medicine; ATTEND Internal Medicine
PROC: 30233N1 Transfusion of Nonautologous Red Blood Cells into Peripheral Vein, Percutaneous Approach (ICD-10-PCS; 2018-08-26)
PROC: 0DJ08ZZ Inspection of Upper Intestinal Tract, Via Natural or Artificial Opening Endoscopic (ICD-10-PCS; principal; 2018-08-29 16:00)
PROC: 0DJD8ZZ Inspection of Lower Intestinal Tract, Via Natural or Artificial Opening Endoscopic (ICD-10-PCS; 2018-08-29 16:00)
DX: D50.9 Iron deficiency anemia, unspecified (principal); G45.9 Transient cerebral ischemic attack, unspecified; N39.0 Urinary tract infection, site not specified; R47.02 Dysphasia; R47.1 Dysarthria and anarthria; K22.70 Barrett's esophagus without dysplasia; K64.8 Other hemorrhoids; K64.4 Residual hemorrhoidal skin tags; K21.9 Gastro-esophageal reflux disease without esophagitis; I48.2 Chronic atrial fibrillation; I10 Essential (primary) hypertension; K59.09 Other constipation; L30.9 Dermatitis, unspecified; E03.9 Hypothyroidism, unspecified; E78.5 Hyperlipidemia, unspecified; E55.9 Vitamin D deficiency, unspecified; Z87.891 Personal history of nicotine dependence; Z79.899 Other long term (current) drug therapy; Z79.01 Long term (current) use of anticoagulants; Z87.11 Personal history of peptic ulcer disease; Z79.02 Long term (current) use of antithrombotics/antiplatelets

== ENCOUNTER 2018-08-30 19:41 | Inpatient (IN) | payer OTHER, MEDICAID ==
[2018-08-30 20:23] VITALS: BMI 35.6
[2018-08-31] MEDS: Enoxaparin 120 mg Syringe SC SCH (05:14)
[2018-08-31] MEDS: Pantoprazole 40 mg EC Tab PO SCH (05:15)
[2018-08-31 07:03] LABS: BASO # 0.1 K/mm3 (0.0-2.0); BASO % 1.5 % (0.0-3.0); EOS # 0.3 (0.0-0.7); EOS % 4.2 % (1.5-5.0); HEMOGLOBIN 9.8 g/dL (12.0-16.0); LYMPH # 2.4 (1.2-3.4); LYMPH % 34.4 % (22.0-35.0); MEAN CELL VOLUME 77.3 fl (80.0-105.0); MEAN CORPUSCULAR HEMOGLOBIN 22.7 pg (25.0-35.0); MEAN CORPUSCULAR HGB CONC 29.4 g/dl (31.0-37.0); MONO # 0.8 (0.1-0.6); MONO % 10.9 % (1.0-6.0); RBC 4.31 10^6/uL (3.5-6.1); RED CELL DISTRIBUTION WIDTH 20.3 % (11.5-14.5); WHITE BLOOD COUNT 6.9 10^3/uL (4.5-11.0)
[2018-08-31 07:10] LABS: INR 1.47; PROTHROMBIN TIME 16.6 SECONDS (9.4-12.5)
[2018-08-31 07:27] LABS: ALB/GLOB RATIO 0.8 (1.1-1.8); ALBUMIN 3.5 g/dL (3.0-4.8); ALT/SGPT < 6 U/L (7-56); AST/SGOT 27 U/L (14-36); BLOOD UREA NITROGEN 21 mg/dL (7-21); CALCIUM 8.6 mg/dL (8.4-10.5); GFR NON-AFRICAN AMERICAN 54
--- NOTE | 2018-08-31 14:02 | HP ---
DATE OF EXAM: 08/31/2018 HISTORY OF PRESENT ILLNESS: The patient is a 78-year-old, who was brought to emergency room because of slurred speech, feeling weak, not walking right, initial impression was TIA. During workup, it showed she is anemic. Her carotid Doppler was unremarkable. CT scan of the brain is unremarkable. So, the patient was evaluated by GI, underwent endoscopy, colonoscopy. not available , the patient transferred to TCU for gait training to reduce fall risk. PAST MEDICAL HISTORY: Significant for; 1. Hypertension. 2. Chronic atrial fibrillation. 3. Chronic constipation. 4. Hyperlipidemia. 5. Hypertension. ALLERGIES: SHE IS NOT ALLERGIC TO ANY MEDICATIONS. MEDICATIONS AT HOME: She is on Coumadin. She is on Crestor 10 mg daily, Protonix 40 mg daily, metoprolol 25 mg twice a day, Linzess, and vitamin D. SOCIAL HISTORY: She lives with her daughter. She was heavy smoker in the remote past. PHYSICAL EXAMINATION GENERAL: She is awake, alert, oriented, able to communicate. VITAL SIGNS: She is afebrile, pulse 83, respirations 18, blood pressure 155/68. LUNGS: Bilateral fair airflow. No rhonchi or crackle. HEART: S1 and S2 audible. ABDOMEN: Soft, nontender. No rebound. No guarding. NEUROLOGICAL: The patient is awake, alert, able to communicate. EXTREMITIES: Moves all extremities. Bilateral leg, no edema. LABORATORY DATA: WBC 6.9, hemoglobin 9.8, hematocrit 33, platelet 302. PT , INR 1.47. Chemistry; sodium 137, potassium 3.9, chloride 101, CO2 of 31, BUN 21, creatinine 1.0, blood sugar of 99. ASSESSMENT: 1. Anemia, etiology still unclear. Esophagogastroduodenoscopy and colonoscopy seems to be unremarkable. 2. Transient ischemic attack. 3. Hyperlipidemia. 4. Chronic atrial fibrillation. 5. History of hypertension. 6. Hyperlipidemia. PLAN: The patient has been restarted on Coumadin. She is on statin. She is on beta-trino. She is on Lovenox until she is therapeutic. She is on Protonix. We will follow up the patient in the a.m. Cj Wolfe MD [facility] # [id number]
--- NOTE | 2018-08-31 19:12 | CON ---
DATE: 08/31/2018 CARDIOLOGY CONSULTATION REASON FOR CONSULTATION AND FOLLOWUP: Cardiac evaluation followup with continuity of care at Transitional Care Unit, history of atrial fibrillation, slow ventricular rate, in telemetry 2.1 second pause. BRIEF CLINICAL HISTORY: This is a 78-year-old female, who initially admitted on 08/24/2018, went to order because of difficulty in finding the words. Initial admitting diagnosis was UTI, sepsis, and TIA. Has history of chronic atrial fibrillation while the patient was in telemetry unit and in the process of being transferred to TCU found to be AFib with the slow ventricular rate of 2.2 second pause; multiple pauses, longest being the 2.2 though the patient was on Toprol XL 25 mg p.o. b.i.d., which was held and since the patient's heart rate improved. No further episode of bradyarrhythmia noted though the patient is now in telemetry, so is in a non-telemetry monitored bed. PAST MEDICAL HISTORY: Significant for hypertension, chronic atrial fibrillation, hyperlipidemia, history of recurrent UTI, and sepsis. The recent history of admission with TIA and sepsis, source being the UTI. PAST SURGICAL HISTORY: Significant for left shoulder surgery. CURRENT MEDICATIONS: The patient is taking in TCU; Coumadin 2 mg daily alternated by 1 mg daily, Crestor 10 mg daily, metoprolol tartrate 12.5 mg p.o. b.i.d. as well as enoxaparin 110 mg subcu daily, and Protonix 40 mg daily. MEDICINE AT HOME: Coumadin 2 mg alternated by 1 mg, Protonix, Crestor, metoprolol succinate 25 mg p.o. b.i.d., Linzess, and Colace. ALLERGIES: NO KNOWN DRUG ALLERGY. RECENT CARDIAC WORKUP: As follows; the patient had an echocardiography on 08/27/2018, read by Dr. Carvalho as normal LV function; ejection fraction within normal limits. No segmental wall motion abnormality. Left atrium is moderately dilated, trace aortic regurgitation, mild mitral regurgitation, mild tricuspid regurgitation, mild pulmonary hypertension, RV systolic pressure reported as 41 mmHg, and ejection fraction 58.8%. REVIEW OF SYSTEMS: As per HPI. PHYSICAL EXAMINATION: GENERAL: Height of the patient 4 feet 10 inches, weight of the patient 170 pounds, and body mass index 35 kg/m2. VITAL SIGNS: Temperature afebrile, heart rate 62, and blood pressure 132/76. HEENT: PERRLA. Extraocular muscles intact. NECK: Supple. No carotid bruits or thyromegaly. CHEST: Clear to auscultation. HEART: S1 and S2 regular. ABDOMEN: Soft. EXTREMITIES: Clubbing and cyanosis negative. LABORATORY DATA: Blood workup as follows; WBC 6.9, hemoglobin 9.8, hematocrit 33.3, platelet count 302, and coagulation INR is 1.47. Chemistry shows sodium 137, potassium 3.9, chloride 101, carbon dioxide 31, anion gap of 9, BUN 21, and creatinine 1.0. Last EKG in the chart 08/26/1999 that indicates AFib with rate of 62. IMPRESSION: A 78-year-old female with a past medical history significant for chronic atrial fibrillation, hypertension, hyperlipidemia, and history of recurrent urinary tract infection, admitted with possible transient ischemic attack, unable to express and finding the words, history of urinary tract infection, and history of sepsis. While in the telemetry, the patient was found to be urinary tract infection as well as atrial fibrillation with slow ventricular rate, and multiple pauses longest being 2.2 seconds while the patient was on Toprol XL 25 mg p.o. b.i.d., which was held and since the patient's heart rate improved. RECOMMENDATIONS: Continue to hold Toprol XL. We will change to metoprolol tartrate slow acting 12.5 mg p.o. b.i.d. with holding parameter. We will repeat EKG. Last TSH was 2.14. Also the patient's INR is subtherapeutic 1.47; the patient is currently on 10 mg. After 10 mg, we will change to 4 mg to prevent overshoot. We will follow with you and we will repeat EKG. Thank you Dr. Wolfe for providing us the opportunity in taking care of the patient, Jody Stevens. Mariela Neri MD cc: Cj Wolfe MD.
--- NOTE | 2018-08-31 22:10 | CON ---
DATE: 08/31/2018 HISTORY OF PRESENT ILLNESS: This is a 78-year-old female brought to the Emergency Room with slurred speech, feeling weakness, and was admitted with TIA. Patient is anemic and CAT scan of the head was done, which was normal and carotid Doppler was unremarkable. Patient was evaluated per GI, underwent colonoscopy, and now transferred to [facility]. PAST MEDICAL HISTORY: Hypertension, atrial fibrillation, constipation, hyperlipidemia. ALLERGY: NO KNOWN DRUG ALLERGY. SOCIAL HISTORY: Lives with the daughter. Heavy smoker in the past. PHYSICAL EXAMINATION NEUROLOGIC: Awake, alert, orientated x3. No aphasia. Cranial nerves II through XII are tested. Pupils reactive. Spontaneous movement of the extremities noted. Deep tendon reflexes 1+. Plantars downgoing. Sensory appears intact. Cerebellar gait deferred. IMPRESSION: 1. Transient ischemic attack. 2. Anemia. 3. Hyperlipidemia. 4. Chronic atrial fibrillation. 5. Hypertension. PLAN: Workup in progress. Continue present management. Patient was restarted on Coumadin. We will follow up. Bebo Ledesma MD
--- NOTE | 2018-08-31 23:06 | CARD ---
APPROVED REPORT Date of service: 08/31/2018 EKG Measurement Heart [id number] <Conclusion> Atrial fibrillation Nonspecific ST and T wave abnormalities Abnormal ECG
[2018-09-01] MEDS: Pantoprazole 40 mg EC Tab PO SCH (05:06)
[2018-09-01] MEDS: Enoxaparin 120 mg Syringe SC SCH (05:06)
--- NOTE | 2018-09-01 18:44 | PN ---
DATE: 09/01/2018 LOCATION: The patient is in room 318, bed 1. REASON FOR CONSULTATION AND FOLLOWUP: Atrial fibrillation, slower ventricular rate, TIA, hypertension, hyperlipidemia. SUBJECTIVE: The patient was on medical floor, admitted with TIA like symptoms and found to have atrial fibrillation and slow ventricular rate while the patient was Toprol, so Toprol was discontinued and heart rate became stable. The patient is lying flat in bed without chest pain, shortness of breath, or palpitation. PHYSICAL EXAMINATION: VITAL SIGNS: Blood pressure is 126/57, respirations 18, pulse 68, and temperature 97.6. HEENT: Head is normocephalic. Eyes; pupil normal. Conjunctivae is slightly pale. NECK: JVP low. Carotids equal. THORAX: AP diameter normal. LUNGS: Clear. CARDIOVASCULAR: S1 and S2. ABDOMEN: Soft and nontender. No organomegaly. Bowel sounds normal. EXTREMITIES: No clubbing. No cyanosis. LABORATORY DATA: WBC 6.9, hemoglobin 9.8, hematocrit 33.3, platelets 302. Sodium 137, potassium 3.9, BUN 21, creatinine 1. Sugar 122. Calcium, phosphorus, and magnesium are normal. DIAGNOSES: Chronic atrial fibrillation, slow rate while the patient was on Toprol, hypertension, hyperlipidemia, recurrent urinary tract infection, transient ischemic attack, and sepsis. PLAN: The patient is on warfarin 3 mg p.o. daily, atorvastatin 40 mg daily, metoprolol tartrate 12.5 mg p.o. daily. The patient is on Lovenox 110 subcu daily and Protonix 40 mg daily. We will repeat prothrombin time in the morning and we will continue physical therapy. We will follow with you. Mariela Singer MD # [id number]
[2018-09-02] MEDS: Pantoprazole 40 mg EC Tab PO SCH (05:30)
[2018-09-02] MEDS: Enoxaparin 120 mg Syringe SC SCH (05:31)
[2018-09-02 07:37] LABS: INR 2.86; PROTHROMBIN TIME 32.3 SECONDS (9.4-12.5)
--- NOTE | 2018-09-02 14:40 | PN ---
DATE: 09/02/2018 LOCATION: The patient in room 318, bed 1. REASON FOR CONSULTATION AND FOLLOWUP: Atrial fibrillation, slow ventricular rate, TIA, hypertension, hyperlipidemia. SUBJECTIVE: The patient was admitted to medical floor with TIA-like symptoms and found to have atrial fibrillation with slow ventricular rate. The patient was on Toprol, so Toprol was discontinued and the patient's heart rate became stable. The patient on intensive care unit for deconditioning, getting physical therapy. Denies chest pain, shortness of breath, or palpitation. PHYSICAL EXAMINATION: VITAL SIGNS: Blood pressure 138/70, respirations 20, pulse 78, and temperature 97.1. HEENT: Head is normocephalic. Eyes: Pupils normal. Conjunctivae slightly pale. NECK: JVP low. Carotids equal. THORAX: AP diameter normal. LUNGS: Clear. CARDIOVASCULAR: S1 and S2. ABDOMEN: Soft and nontender. No organomegaly. EXTREMITIES: No clubbing. No cyanosis. LABORATORY DATA: Lab work done on 08/31/2018 were reported, no previous notes. The patient's sugar today is 96. DIAGNOSES: Chronic atrial fibrillation, slow ventricular rate which improved after stopping Toprol, hypertension, hyperlipidemia, recurrent urinary tract infection, transient ischemic attack, sepsis. PLAN: The patient's today prothrombin time 32.2 with INR 2.86 which is therapeutic. We will discontinue Lovenox now and continue metoprolol 12.5 mg p.o. daily, atorvastatin 40 daily, warfarin 3 mg daily, Protonix 40 daily. Continue physical therapy. We will follow with you. Mariela Singer MD
[2018-09-03] MEDS: Pantoprazole 40 mg EC Tab PO SCH (05:50)
--- NOTE | 2018-09-03 09:01 | PN ---
DATE: 09/01/2018 SUBJECTIVE: The patient is 78 years old, seen and examined, doing well. No nausea or vomiting. No diarrhea. Eating and tolerating. PHYSICAL EXAMINATION: VITAL SIGNS: The patient is afebrile, pulse 83, respirations 18, blood pressure 135/67. LUNGS: Bilateral fair air flow. No rhonchi or crackle. HEART: S1 and S2 audible. ABDOMEN: Soft, nontender. No rebound, no guarding. NEUROLOGIC: She is awake, alert, oriented, communicative. Moves all extremities. LABORATORY DATA: Blood sugar is 77. ASSESSMENT: 1. Status post transient ischemic attack with generalized weakness and slurred speech, seems to be improving. 2. Deconditioning and difficulty walking. 3. Anemia, status post endoscopy and colonoscopy. 4. History of chronic atrial fibrillation. 5. Hypertension. 6. Hyperlipidemia. PLAN: The patient will receive Coumadin 3 mg today. I will order for PT/INR tomorrow to adjust her Coumadin level and encouraged physical therapy. We will follow up this patient in a.m. Cj Wolfe MD
--- NOTE | 2018-09-03 13:56 | PN ---
DATE: 09/03/2018 SUBJECTIVE: The patient is 78-year-old, seen and examined. Doing well, seen in gym and anxious to go home. PHYSICAL EXAMINATION: VITAL SIGNS: She is afebrile. Pulse 81, respiration 20 and blood pressure 140/98. LUNGS: Bilateral fair airflow. No rhonchi or crackle. HEART: S1 and S2, audible. ABDOMEN: Soft and nontender. No rebound. No guarding. NEUROLOGICAL: The patient is awake, alert, oriented and communicative. LABORATORY DATA: PT 32.3 and INR 2.86. ASSESSMENT: 1. Status post transient ischemia attack. 2. Chronic atrial fibrillation. 3. Anemia. 4. Mild dementia. PLAN: We will continue the patient on current medication. Continue her Statin. She is on metoprolol, Protonix and we will reevaluate the patient in a.m. Cj Wolfe MD
--- NOTE | 2018-09-03 14:38 | PN ---
DATE: 09/03/2018 LOCATION: The patient is in room 318, bed 1. REASON FOR CONSULTATION AND FOLLOWUP: Atrial fibrillation, slow ventricular rate, transient ischemic attack, hypertension and hyperlipidemia. SUBJECTIVE: The patient was on medical floor with TIA-like symptoms also the patient had atrial fibrillation with slow rate, when the metoprolol dose was adjusted the heart rate became stable. The patient is now in transitional care unit for deconditioning and need physical therapy. The patient in the gym for exercise, I examined her there. The patient is asymptomatic, getting physical therapy. No chest pain. No shortness of breath. No palpitation. PHYSICAL EXAMINATION: VITAL SIGNS: Blood pressure 139/68, respiration 20 and pulse 61. The patient is afebrile. HEENT: Head is normocephalic. Eyes, pupils normal. Conjunctivae slightly pale. NECK: JVP low. Carotids equal. THORAX: AP diameter normal. LUNGS: Clear. CARDIOVASCULAR: S1 and S2. ABDOMEN: Soft and nontender. No organomegaly. Bowel sounds normal. EXTREMITIES: No clubbing. No cyanosis. LABORATORY DATA: Lab showed a blood sugar 73, other labs were done on 08/31/2018 and there were reported in our previous notes. The patient's PT/INR yesterday, PT was 32.3 and INR is 2.86, which is therapeutic. DIAGNOSES: Chronic atrial fibrillation, slow ventricular rate which improved with adjusting the dose of metoprolol and Toprol, hypertension, hyperlipidemia, recurrent urinary tract infection, transient ischemic attack and sepsis. PLAN: The patient's Lovenox has been stopped because PT/INR yesterday was therapeutic. Now, the patient is on Warfarin 3 mg daily, atorvastatin 40 mg daily, metoprolol 12.5 mg daily and Protonix 40 mg daily. We will continue physical therapy. We will continue present medication. We will follow with you. Mariela Singer MD
[2018-09-04] MEDS: Pantoprazole 40 mg EC Tab PO SCH (05:32)
[2018-09-04 11:02] VITALS: RESP 20
[2018-09-04 11:03] VITALS: TEMP 98.3
--- NOTE | 2018-09-04 14:09 | CP.PCM.PN ---
<CortezRosalio - Last Filed: 09/04/18 14:11> Subjective - Date & Time of Evaluation Date of Evaluation: 09/04/18 Time of Evaluation: 09:15 - Subjective Subjective: PGY5 GI Follow-up note Pt seen and examined bedside Denies any abd pain, nausea or vomiting ROS: 12 point ROS conducted, neg other than above Objective - Vital Signs/Intake and Output Vital Signs (last 24 hours): Temp Pulse Resp BP Pulse Ox 98.3 F 61 20 127/68 99 09/04/18 11:01 09/04/18 11:01 09/04/18 11:01 09/04/18 11:01 09/04/18 11:01 - Medications Medications: Current Medications Atorvastatin Calcium (Lipitor) 40 mg PO DIN ROSARIO; Protocol Last Admin: 09/03/18 17:17 Dose: 40 mg Docusate Sodium (Colace) 100 mg PO DAILY ROSARIO; Protocol Last Admin: 09/04/18 09:39 Dose: 100 mg Metoprolol Tartrate (Lopressor) 12.5 mg PO 0800,1800 ROSARIO; Protocol Last Admin: 09/04/18 07:38 Dose: 12.5 mg Pantoprazole Sodium (Protonix Ec Tab) 40 mg PO 0600 ROSARIO; Protocol Last Admin: 09/04/18 05:32 Dose: 40 mg Warfarin Sodium (Coumadin) 3 mg PO 1800 ROSARIO; Protocol Last Admin: 09/03/18 17:17 Dose: 3 mg - Labs Labs: 08/31/18 06:30 08/31/18 06:30 PT 32.3 SECONDS (9.4-12.5) H 09/02/18 06:30 INR 2.86 09/02/18 06:30 - Constitutional Appears: Well, No Acute Distress - Head Exam Head Exam: ATRAUMATIC, NORMOCEPHALIC - Eye Exam Eye Exam: Normal appearance - ENT Exam ENT Exam: Mucous Membranes Moist, Normal Exam - Neck Exam Neck Exam: Normal Inspection - Respiratory Exam Respiratory Exam: Clear to Ausculation Bilateral, NORMAL BREATHING PATTERN. absent: Rales, Rhonchi, Wheezes, Respiratory Distress - Cardiovascular Exam Cardiovascular Exam: REGULAR RHYTHM, +S1, +S2 - GI/Abdominal Exam GI & Abdominal Exam: Soft, Normal Bowel Sounds. absent: Guarding, Rigid, Tenderness, Organomegaly - Extremities Exam Extremities Exam: absent: Joint Swelling, Pedal Edema - Neurological Exam Neurological Exam: Alert, Awake, Oriented x3 - Psychiatric Exam Psychiatric exam: Normal Affect, Normal Mood - Skin Skin Exam: Dry, Intact, Normal Color, Warm Assessment and Plan - Assessment and Plan (Free Text) Assessment: 78 year old female with PMH of Afib (on warfarin), constipation, perianal abscess 2014, Boerhaave syndrome, presenting with TIA. GI consultation for acute on chronic microcytic anemia s/p 1U pRBC (08/26) in setting of anticoagulation use for Afib and questionable fistula (08/26/18) with history of perianal abscess and unclear endoscopic history. s/p EGD and colonoscopy: short segment barretts and hemorrhoids Plan: -continue coumadin -no obvious cause of anemia -follow-up as an oupt for ayala's -continue PPI -will sign off. D/W Dr. Mayorga <Madeleine Mayorga V - Last Filed: 09/04/18 22:07> Objective - Vital Signs/Intake and Output Vital Signs (last 24 hours): Temp Pulse Resp BP Pulse Ox 98.3 F 73 20 138/72 97 09/04/18 11:01 09/04/18 17:20 09/04/18 11:01 09/04/18 17:03 09/04/18 17:20 - Medications Medications: Current Medications Atorvastatin Calcium (Lipitor) 40 mg PO DIN ROSARIO; Protocol Last Admin: 09/04/18 17:03 Dose: 40 mg Docusate Sodium (Colace) 100 mg PO DAILY ROSARIO; Protocol Last Admin: 09/04/18 09:39 Dose: 100 mg Metoprolol Tartrate (Lopressor) 12.5 mg PO 0800,1800 ROSARIO; Protocol Last Admin: 09/04/18 17:03 Dose: 12.5 mg Pantoprazole Sodium (Protonix Ec Tab) 40 mg PO 0600 ROSARIO; Protocol Last Admin: 09/04/18 05:32 Dose: 40 mg Warfarin Sodium (Coumadin) 3 mg PO 1800 ROSARIO; Protocol Last Admin: 09/04/18 17:02 Dose: 3 mg - Labs Labs: 08/31/18 06:30 08/31/18 06:30 PT 32.3 SECONDS (9.4-12.5) H 09/02/18 06:30 INR 2.86 09/02/18 06:30 Attending/Attestation - Attestation I have personally seen and examined this patient.: Yes I have fully participated in the care of the patient.: Yes I have reviewed all pertinent clinical information, including history, physical exam and plan: Yes Notes (Text): This is an addendum to GI progress report dictated by the GI Fellow. The patient was seen and examined earlier. Medical records, lab studies, imagings were reviewed. Last 24 hours events reviewed. Agreed with the above treatment plan as outlined in GI Fellow 's notes with the addition of the following 09/04/18 22:07
--- NOTE | 2018-09-04 15:10 | PN ---
DATE: 09/04/2018 SUBJECTIVE: The patient is seen and examined, lying in bed, seems to be comfortable. No nausea, vomiting, or diarrhea. No complain. No abdominal pain. PHYSICAL EXAMINATION: VITAL SIGNS: She is afebrile, pulse 61, respiration 20 and blood pressure 127/68. LUNGS: Bilateral fair airflow. No rhonchi or crackle. HEART: S1 and S2, audible. ABDOMEN: Soft and nontender. No rebound. No guarding. NEUROLOGICAL: The patient is awake, alert, oriented and communicative. ASSESSMENT: 1. Anemia, etiology unclear yet. 2. EGD and colonoscopy report, still not available yet. 3. Chronic atrial fibrillation. 4. Hypertension. 5. History of cerebrovascular accident in the past. 6. Recent transient ischemic attack. PLAN: I will order for PT/INR for tomorrow. Continue current medications. If the patient remains stable, discharge plan for a.m. Cj Wolfe MD
--- NOTE | 2018-09-04 18:30 | PN ---
DATE: 09/04/2018 LOCATION: The patient is in room 318, in bed 1. REASON FOR CONSULTATION AND FOLLOWUP: Atrial fibrillation, slow ventricular rate, TIA, hypertension, hyperlipidemia. SUBJECTIVE: The patient was on medial floor with TIA-like symptoms and found to have atrial fibrillation which he has history, but rate was slow. The patient was on metoprolol, so metoprolol dose was adjusted and heart rate became stable. The patient denies any chest pain, shortness of breath, or palpitations. The patient is getting physical therapy without any cardiac symptoms. PHYSICAL EXAMINATION: VITAL SIGNS: Blood pressure 120/66, respirations 18, pulse 78, temperature 98.6. HEENT: Head is normocephalic. Eyes, pupil normal. Conjunctivae slightly pale. NECK: JVP low, carotid equal. THORAX: AP diameter normal. LUNGS: Clear. CARDIOVASCULAR: S1 and S2. ABDOMEN: Soft, nontender, no organomegaly. Bowel sounds normal. EXTREMITIES: No clubbing, no cyanosis. LABORATORY DATA: Labs were done on 08/31/2018 and they were reported in our previous progress note. Today's fingerstick sugar is 93. DIAGNOSES: Transient ischemic attack, chronic atrial fibrillation, initially on admission was slow rate due to metoprolol, the dose was adjusted and heart rate became stable. History of hypertension and hyperlipidemia, recurrent urinary tract infection, sepsis. PLAN: The patient is on warfarin 3 mg p.o. daily, atorvastatin 40 daily, metoprolol tartrate 12.5 daily, Protonix 40 daily. We will continue physical therapy, we will continue present medications, and we will follow with you. Mariela Singer MD
[2018-09-05] MEDS: Pantoprazole 40 mg EC Tab PO SCH (05:51)
[2018-09-05 06:26] LABS: INR 3.42; PROTHROMBIN TIME 38.7 SECONDS (9.4-12.5)
[2018-09-05 13:24] VITALS: O2SAT 96
--- NOTE | 2018-09-05 16:11 | PN ---
DATE: 09/05/2018 LOCATION: The patient in room 318 and bed 1. REASON FOR CONSULTATION AND FOLLOWUP: Atrial fibrillation, slow ventricular rate, TIA, hypertension, and hyperlipidemia. SUBJECTIVE: The patient lying flat in bed without any cardiac symptoms. No chest pain, shortness of breath, or palpitation. The patient was admitted to medical floor with TIA and found to have atrial fibrillation that is slow rate, so metoprolol dose were adjusted and heart rate became stable. PHYSICAL EXAMINATION: VITAL SIGNS: Blood pressure 137/91, respirations 20, pulse 86, and temperature 98.3. HEENT: Head is normocephalic. Eyes; pupil normal. Conjunctivae; slightly pale. NECK: JVP low, carotid equal. THORAX: AP diameter normal. LUNGS: Clear. CARDIOVASCULAR: S1 and S2. ABDOMEN: Soft and nontender. No organomegaly. Bowel sounds normal. EXTREMITIES: No clubbing and no cyanosis. LABORATORY DATA: Done on 08/31/2018, they were reported in previous notes. Today's fingerstick sugar is 92. DIAGNOSES: Transient ischemic attack, chronic atrial fibrillation, initially on admission was slow rate after adjusting metoprolol dose heart rate became stable, history of hypertension hyperlipidemia, diabetes mellitus, urinary tract infection, and sepsis. PLAN: The patient's prothrombin time today 38.7 with INR 3.42 which is elevated. Coumadin is on hold. We will repeat PT/INR in the morning. The patient to continue physical therapy. We will follow with you. Mariela Singer MD
[2018-09-05 17:13] VITALS: BP 133/54; PULSE 62
--- NOTE | 2018-09-06 02:27 | DS ---
HISTORY OF PRESENT ILLNESS: Patient is 78 years old, who initially came in with possible TIA. She has slurred speech, difficulty walking. Family brought her to ER. She had neurological workup done that was unremarkable. She was found to be anemic, underwent endoscopy and colonoscopy. Her Coumadin was on hold since she has AFib and was found have to short-segment Calloway's esophagus and hemorrhoids. The patient was transferred to TCU for rehab, doing well, participating in therapy. Awake, alert, oriented, communicative, eating and tolerating. PHYSICAL EXAMINATION: VITAL SIGNS: She is afebrile, pulse 86, respirations 20, blood pressure 137/91. LUNGS: Bilateral fair airflow. No rhonchi or crackles. HEART: S1 and S2 audible. ABDOMEN: Soft and nontender. No rebound. No guarding. NEUROLOGIC: Patient is awake, alert, oriented, communicative, moves all extremities, ambulates with a walker. ASSESSMENT: 1. Status post transient ischemic attack. 2. Chronic atrial fibrillation. 3. Hypertension. 4. Hyperlipidemia. 5. Non-insulin dependent diabetes. 6. Anemia. 7. Calloway's esophagus. 8. Hemorrhoids. PLAN: We will continue patient on current medications. She is on Coumadin. She is on Crestor, Protonix, metoprolol, Linzess, and Colace that she will continue at home. We will hold her today's Coumadin since her PT is 38.7 and her INR is 3.42. Patient will follow up with her PMD. Cj Wolfe MD
== END 2018-09-05 18:43 | disposition home or self-care (01) | DRG 556 ==
LOC: TRCU 19:41
PROVIDERS: ADMIT Internal Medicine; ATTEND Internal Medicine
PROC: F07Z9ZZ Gait Training/Functional Ambulation Treatment (ICD-10-PCS; principal; 2018-08-31)
PROC: F08Z4ZZ Home Management Treatment (ICD-10-PCS; 2018-08-31)
DX: R26.2 Difficulty in walking, not elsewhere classified (principal); N39.0 Urinary tract infection, site not specified; R53.1 Weakness; I48.2 Chronic atrial fibrillation; E11.9 Type 2 diabetes mellitus without complications; Z86.73 Personal history of transient ischemic attack (TIA), and cerebral infarction without residual deficits; I10 Essential (primary) hypertension; K22.70 Barrett's esophagus without dysplasia; D50.9 Iron deficiency anemia, unspecified; F03.90 Unspecified dementia, unspecified severity, without behavioral disturbance, psychotic disturbance, mood disturbance, and anxiety; E78.5 Hyperlipidemia, unspecified; K64.9 Unspecified hemorrhoids; Z79.84 Long term (current) use of oral hypoglycemic drugs; Z87.891 Personal history of nicotine dependence; Z87.440 Personal history of urinary (tract) infections; Z91.81 History of falling